=== PATIENT | female | born 1980 | race Caucasian/White ===

== ENCOUNTER → 2016-09-22 | Outpatient (CLI) | payer OTHER ==
--- NOTE | 2016-09-22 21:12 | REP ---
Clinical: Left hip pain. Technique: AP view of the pelvis with neutral and frog lateral views of the right and left hip. Findings: The osseous structures are intact. There is no evidence for acute fracture or dislocation. The bilateral hip joints are symmetric and normal. No overt arthritic degenerative changes are appreciated. No periarticular calcifications are identified. Impression: Symmetric normal appearance of the hips and pelvis. Signed by oYan Ardon MD 09/22/2016 09:03 P
== END ==
LOC: M SMT 12:57
PROVIDERS: ATTEND Family Medicine
DX: M25.552 Pain in left hip (principal)

== ENCOUNTER → 2016-10-29 | Outpatient (REF) | payer OTHER | LOC: M LAB REF 16:53 | PROVIDERS: ATTEND Family Medicine | DX: J02.9 Acute pharyngitis, unspecified (principal) ==

== ENCOUNTER → 2017-01-08 | Outpatient (CLI) | payer OTHER ==
[2017-01-08 18:44] LABS: ALBUMIN/GLOBULIN RATIO 1.11 (1.00-1.93); ALKALINE PHOSPHATASE 27 U/L (45-117); ALT/SGPT 19 U/L (12-78); ANION GAP 8 MEQ/L (8-16); AST/SGOT 17 U/L (15-37); BILIRUBIN,TOTAL 0.5 MG/DL (0.2-1.0); BLOOD UREA NITROGEN 13 MG/DL (7-18); CALCIUM LEVEL 8.7 MG/DL (8.5-10.1); CARBON DIOXIDE LEVEL 28 MEQ/L (21-32); CHLORIDE LEVEL 104 MEQ/L (98-107); CHOLESTEROL LEVEL 166 MG/DL (<200); CREATININE FOR GFR 1.02 MG/DL (0.55-1.02); GLOMERULAR FILTRATION RATE > 60.0 (>60); GLUCOSE, FASTING 84 MG/DL (70-105); POTASSIUM SERUM 4.6 MEQ/L (3.5-5.1); SODIUM LEVEL 140 MEQ/L (136-145); TOTAL PROTEIN 7.6 GM/DL (6.4-8.2); TRIGLYCERIDES LEVEL 85 MG/DL (<150)
== END ==
LOC: M SMT 10:09
PROVIDERS: ATTEND Physician Assistant
DX: Z13.220 Encounter for screening for lipoid disorders (principal); E55.9 Vitamin D deficiency, unspecified

== ENCOUNTER → 2018-07-27 | Outpatient (CLI) | payer BC ==
[2018-07-27 13:47] LABS: ALBUMIN 4.2 GM/DL (3.2-5.2); ALBUMIN/GLOBULIN RATIO 1.17 (1.00-1.93); ALKALINE PHOSPHATASE 29 U/L (45-117); ALT/SGPT 23 U/L (12-78); ANION GAP 6 MEQ/L (8-16); AST/SGOT 17 U/L (7-37); BILIRUBIN,TOTAL 0.6 MG/DL (0.2-1.0); BLOOD UREA NITROGEN 9 MG/DL (7-18); CALCIUM LEVEL 8.8 MG/DL (8.5-10.1); CARBON DIOXIDE LEVEL 28 MEQ/L (21-32); CHLORIDE LEVEL 104 MEQ/L (98-107); CHOLESTEROL LEVEL 172 MG/DL (<200); CHOLESTEROL RISK RATIO 4.095 (<5); CREATININE FOR GFR 1.01 MG/DL (0.55-1.30); FREE T4 0.92 NG/DL (0.76-1.46); GLOMERULAR FILTRATION RATE > 60.0 (>60); GLUCOSE, FASTING 94 MG/DL (70-100); HDL CHOLESTEROL 42 MG/DL (>40); LDL CHOLESTEROL 104 MG/DL (<100); NON-HDL-C 130 MG/DL; SODIUM LEVEL 138 MEQ/L (136-145); TOTAL PROTEIN 7.8 GM/DL (6.4-8.2); TRIGLYCERIDES LEVEL 132 MG/DL (<150)
[2018-07-27 13:48] LABS: TOTAL 25(OH) VITAMIN D 16.7 NG/ML (30.0-100.0)
== END ==
LOC: M SMT 08:44
DX: E55.9 Vitamin D deficiency, unspecified (principal); E66.8 Other obesity
CPT/HCPCS: 84443

== ENCOUNTER → 2018-11-06 | Outpatient (CLI) | payer BC ==
[2018-11-06 12:41] LABS: BASO # 0.1 10^3/uL (0.0-0.2); BASO % 0.9 % (0.0-1.0); EOS # 0.2 10^3/uL (0.0-0.50); EOS % 3.6 % (0.0-3.0); HEMATOCRIT 41.5 % (36.0-47.0); HEMOGLOBIN 13.1 g/dl (12.0-15.5); LYMPH # 1.6 10^3/uL (1.5-4.5); LYMPH % 27.9 % (24.0-44.0); MEAN CORPUSCULAR HGB CONC 31.6 g/dl (32.0-36.5); MEAN CORPUSCULAR VOLUME 85.6 fl (80.0-96.0); MONO # 0.5 10^3/uL (0.0-0.8); NEUTROPHILS # 3.4 10^3/uL (1.8-7.7); NEUTROPHILS % 59.4 % (36.0-66.0); PLATELET COUNT, AUTOMATED 223 10^3/uL (150-450); RED BLOOD COUNT 4.85 10^6/uL (4.00-5.40); WHITE BLOOD COUNT 5.8 10^3/uL (4.0-10.0)
[2018-11-06 13:12] LABS: ALT/SGPT 22 U/L (12-78); BILIRUBIN,TOTAL 0.5 MG/DL (0.2-1.0); BLOOD UREA NITROGEN 12 MG/DL (7-18); C REACTIVE PROTEIN QUANTITATIV < 0.30 MG/DL (0.00-0.30); CALCIUM LEVEL 8.3 MG/DL (8.5-10.1); CARBON DIOXIDE LEVEL 24 MEQ/L (21-32); CHLORIDE LEVEL 110 MEQ/L (98-107); CREATININE FOR GFR 1.07 MG/DL (0.55-1.30); GLOMERULAR FILTRATION RATE > 60.0 (>60); GLUCOSE, FASTING 87 MG/DL (70-100); POTASSIUM SERUM 4.3 MEQ/L (3.5-5.1); SODIUM LEVEL 142 MEQ/L (136-145); TOTAL PROTEIN 7.5 GM/DL (6.4-8.2)
[2018-11-06 13:23] LABS: ERYTHROCYTE SEDIMENTATION RATE 6 mm/hr (0-20)
[2018-11-09 16:21] LABS: Lyme Disease IgG/IgM Antibodie <0.91 ISR (0.00-0.90); Lyme Disease IgM Ab Quantitati <0.80 index (0.00-0.79)
== END ==
LOC: M LAB 12:11
PROVIDERS: ATTEND Physician Assistant
DX: R42 Dizziness and giddiness (principal)

== ENCOUNTER → 2018-12-22 | Outpatient (REF) | payer BC ==
[2018-12-25 16:33] LABS: HPV HYBRID CAPTURE II Negative (Negative)
== END ==
LOC: M LAB REF 17:30
PROVIDERS: ATTEND Advanced Practice Midwife
DX: Z12.4 Encounter for screening for malignant neoplasm of cervix (principal); N76.0 Acute vaginitis
CPT/HCPCS: 87624; G0123

== ENCOUNTER → 2019-01-21 | Outpatient (CLI) | payer BC ==
[2019-01-21 19:57] LABS: BASO # 0.1 10^3/uL (0.0-0.2); BASO % 0.9 % (0.0-1.0); EOS # 0.1 10^3/uL (0.0-0.50); EOS % 1.9 % (0.0-3.0); HEMATOCRIT 41.1 % (36.0-47.0); HEMOGLOBIN 13.3 g/dl (12.0-15.5); LYMPH # 2.1 10^3/uL (1.5-4.5); MEAN CORPUSCULAR HGB CONC 32.4 g/dl (32.0-36.5); MEAN CORPUSCULAR VOLUME 86.5 fl (80.0-96.0); MONO # 0.5 10^3/uL (0.0-0.8); MONO % 7.5 % (0.0-5.0); NEUTROPHILS # 4.1 10^3/uL (1.8-7.7); NEUTROPHILS % 59.6 % (36.0-66.0); PLATELET COUNT, AUTOMATED 236 10^3/uL (150-450); RED BLOOD COUNT 4.75 10^6/uL (4.00-5.40); WHITE BLOOD COUNT 6.8 10^3/uL (4.0-10.0)
[2019-01-21 20:08] LABS: ALBUMIN 4.1 GM/DL (3.2-5.2); ALT/SGPT 22 U/L (12-78); BILIRUBIN,TOTAL 0.4 MG/DL (0.2-1.0); BLOOD UREA NITROGEN 14 MG/DL (7-18); CALCIUM LEVEL 8.5 MG/DL (8.5-10.1); CARBON DIOXIDE LEVEL 25 MEQ/L (21-32); CHLORIDE LEVEL 106 MEQ/L (98-107); CREATININE FOR GFR 1.07 MG/DL (0.55-1.30); FOLATE 9.1 NG/ML (>5.4); GLOMERULAR FILTRATION RATE > 60.0 (>60); GLUCOSE, FASTING 87 MG/DL (70-100); RHEUMATOID FACTOR QUANT < 10.0 IU/ML (<15.0); SODIUM LEVEL 137 MEQ/L (136-145); TOTAL PROTEIN 8.1 GM/DL (6.4-8.2); VITAMIN B12 LEVEL 571 PG/ML (247-911)
[2019-01-21 20:16] LABS: ERYTHROCYTE SEDIMENTATION RATE 5 mm/hr (0-20)
[2019-01-25 13:20] LABS: ALBUMIN 4.68 GM/DL (3.29-5.55); ALBUMIN % 57.8 % (55.8-66.1); ALPHA-1-GLOBULIN % 3.4 % (2.9-4.9); ALPHA-1-GLOBULINS 0.28 GM/DL (0.17-0.41); ALPHA-2-GLOBULINS 0.66 GM/DL (0.42-0.99); ALPHA-2-GLOBULINS % 8.1 % (7.1-11.8)
[2019-01-25 13:21] LABS: BETA-1-GLOBULINS 0.55 GM/DL (0.28-0.60); BETA-1-GLOBULINS % 6.8 % (4.7-7.2); BETA-2-GLOBULINS 0.51 GM/DL (0.19-0.55); BETA-2-GLOBULINS % 6.3 % (3.2-6.5); GAMMA GLOBULIN % 17.6 % (11.1-18.8); GAMMA GLOBULINS 1.43 GM/DL (0.65-1.58)
[2019-01-27 08:06] LABS: ANTINUCLEAR ANTIBODIES DIRECT Negative (Negative); VITAMIN B1 LEVEL WHOLE BLOOD 103.2 nmol/L (66.5-200.0); VITAMIN E(ALPHA TOCOPHEROL) 7.4 mg/L (5.9-19.4); VITAMIN E(GAMMA TOCOPHEROL) 2.2 mg/L (0.7-4.9)
== END ==
LOC: M WUC 17:03
PROVIDERS: ATTEND Psychiatry & Neurology Neurology
DX: R42 Dizziness and giddiness (principal)

== ENCOUNTER → 2019-01-25 | Outpatient (REF) | payer BC | LOC: M LAB REF 19:24 | PROVIDERS: ATTEND Psychiatry & Neurology Neurology | DX: Z53.9 Procedure and treatment not carried out, unspecified reason (principal) ==

== ENCOUNTER → 2019-01-27 | Outpatient (REF) | payer BC | LOC: M WUC 17:00 | PROVIDERS: ATTEND Psychiatry & Neurology Neurology | DX: R42 Dizziness and giddiness (principal) ==

== ENCOUNTER → 2019-05-10 | Outpatient (REF) | payer BC | LOC: M LAB REF 18:23 | PROVIDERS: ATTEND Physician Assistant | DX: N39.3 Stress incontinence (female) (male) (principal) ==

== ENCOUNTER → 2019-06-27 | Outpatient (REF) | payer BC ==
[2019-06-27 19:22] LABS: BASO # 0.1 10^3/uL (0.0-0.2); BASO % 0.8 % (0.0-1.0); EOS # 0.1 10^3/uL (0.0-0.5); EOS % 1.9 % (0.0-3.0); HEMATOCRIT 42.1 % (36.0-47.0); HEMOGLOBIN 13.1 g/dl (12.0-15.5); LYMPH # 1.6 10^3/uL (1.5-5.0); MEAN CORPUSCULAR HEMOGLOBIN 27.9 pg (27.0-33.0); MEAN CORPUSCULAR HGB CONC 31.1 g/dl (32.0-36.5); MEAN CORPUSCULAR VOLUME 89.6 fl (80.0-96.0); MONO # 0.5 10^3/uL (0.0-0.8); MONO % 7.9 % (0.0-5.0); NEUTROPHILS # 4.1 10^3/uL (1.5-8.5); NEUTROPHILS % 64.1 % (36.0-66.0); PLATELET COUNT, AUTOMATED 241 10^3/uL (150-450); WHITE BLOOD COUNT 6.5 10^3/uL (4.0-10.0)
[2019-06-27 19:33] LABS: ALBUMIN 4.1 GM/DL (3.2-5.2); ALT/SGPT 20 U/L (12-78); BILIRUBIN,TOTAL 0.4 MG/DL (0.2-1.0); BLOOD UREA NITROGEN 17 MG/DL (7-18); CALCIUM LEVEL 8.8 MG/DL (8.5-10.1); CARBON DIOXIDE LEVEL 25 MEQ/L (21-32); CHLORIDE LEVEL 105 MEQ/L (98-107); CREATININE FOR GFR 1.05 MG/DL (0.55-1.30); GLOMERULAR FILTRATION RATE > 60.0 (>60); GLUCOSE, FASTING 82 MG/DL (70-100); POTASSIUM SERUM 4.1 MEQ/L (3.5-5.1); SODIUM LEVEL 140 MEQ/L (136-145); TOTAL PROTEIN 7.4 GM/DL (6.4-8.2)
== END ==
LOC: M LABNEURO 13:27
PROVIDERS: ATTEND Psychiatry & Neurology Neurology
DX: R51 Headache (principal)

== ENCOUNTER → 2020-02-08 | Outpatient (CLI) | payer OTHER ==
[2020-02-08 10:03] LABS: BASO % 0.6 % (0.0-1.0); EOS # 0.1 10^3/uL (0.0-0.5); EOS % 1.1 % (0.0-3.0); HEMATOCRIT 40.6 % (36.0-47.0); HEMOGLOBIN 13.1 g/dl (12.0-15.5); LYMPH # 1.5 10^3/uL (1.5-5.0); LYMPH % 19.9 % (24.0-44.0); MEAN CORPUSCULAR HEMOGLOBIN 28.7 pg (27.0-33.0); MEAN CORPUSCULAR HGB CONC 32.3 g/dl (32.0-36.5); MONO # 0.4 10^3/uL (0.0-0.8); MONO % 6.1 % (0.0-5.0); NEUTROPHILS # 5.2 10^3/uL (1.5-8.5); NEUTROPHILS % 71.9 % (36.0-66.0); PLATELET COUNT, AUTOMATED 261 10^3/uL (150-450); RED BLOOD COUNT 4.56 10^6/uL (4.00-5.40); WHITE BLOOD COUNT 7.3 10^3/uL (4.0-10.0)
[2020-02-08 10:37] LABS: ALBUMIN 3.7 GM/DL (3.2-5.2); ALT/SGPT 120 U/L (12-78); BILIRUBIN,TOTAL 0.6 MG/DL (0.2-1.0); BLOOD UREA NITROGEN 12 MG/DL (7-18); CALCIUM LEVEL 8.8 MG/DL (8.5-10.1); CARBON DIOXIDE LEVEL 25 MEQ/L (21-32); CHLORIDE LEVEL 107 MEQ/L (98-107); CREATININE FOR GFR 0.99 MG/DL (0.55-1.30); FREE T4 0.91 NG/DL (0.76-1.46); GLOMERULAR FILTRATION RATE > 60.0 (>60); GLUCOSE, FASTING 84 MG/DL (70-100); POTASSIUM SERUM 4.3 MEQ/L (3.5-5.1); SODIUM LEVEL 140 MEQ/L (136-145); TOTAL PROTEIN 7.1 GM/DL (6.4-8.2)
[2020-02-08 13:24] LABS: HEPATITIS A ANTIBODY IGM NEGATIVE (NEGATIVE); HEPATITIS B CORE ANTIBODY IGM NEGATIVE (NEGATIVE); HEPATITIS B SURFACE ANTIGEN NEGATIVE (NEGATIVE); HEPATITIS C VIRUS ABY INDEX 0.2 INDEX (<0.8)
[2020-02-08 13:25] LABS: HEPATITIS B SURFACE ANTIBODY POSITIVE (POSITIVE)
== END ==
LOC: M LAB 09:04
PROVIDERS: ATTEND Family Medicine
DX: Z13.29 Encounter for screening for other suspected endocrine disorder (principal); R74.8 Abnormal levels of other serum enzymes; Z13.0 Encounter for screening for diseases of the blood and blood-forming organs and certain disorders involving the immune mechanism

== ENCOUNTER → 2020-03-01 | Outpatient (CLI) | payer OTHER ==
[2020-03-01 08:06] LABS: ALBUMIN 3.6 GM/DL (3.2-5.2); BILIRUBIN,TOTAL 0.4 MG/DL (0.2-1.0); CALCIUM LEVEL 8.7 MG/DL (8.5-10.1); CREATININE FOR GFR 1.11 MG/DL (0.55-1.30); GLOMERULAR FILTRATION RATE 58.6 (>60); POTASSIUM SERUM 3.9 MEQ/L (3.5-5.1); TOTAL PROTEIN 7.1 GM/DL (6.4-8.2)
== END ==
LOC: M LAB 07:10
PROVIDERS: ATTEND Family Medicine
DX: R74.8 Abnormal levels of other serum enzymes (principal)

== ENCOUNTER → 2020-03-07 | Outpatient (REF) | payer OTHER | LOC: M LAB REF 16:54 | PROVIDERS: ATTEND Physician Assistant | DX: N76.0 Acute vaginitis (principal) ==

== ENCOUNTER → 2020-04-19 | Outpatient (REF) | payer OTHER ==
[~2020-04-19] MED LIST: ASHL1TAB PO; CETI10CH PO; SERT-141 PO; ZONI25CA13 PO
[2020-05-27 11:30] LABS: CHLAMYDIA DNA AMPLIFICATION POSITIVE (NEGATIVE); GC DNA AMPLIFICATION NEGATIVE (NEGATIVE)
== END ==
LOC: M SFHCWAGY 12:56
PROVIDERS: ATTEND Advanced Practice Midwife
DX: Z12.4 Encounter for screening for malignant neoplasm of cervix (principal)
CPT/HCPCS: 87491; 87591; 87624; G0123

== ENCOUNTER → 2020-07-07 | Outpatient (CLI) | payer OTHER | LOC: M LABSMTC 10:56 | PROVIDERS: ATTEND Anesthesiology | DX: Z01.818 Encounter for other preprocedural examination (principal); Z20.828 Contact with and (suspected) exposure to other viral communicable diseases | CPT/HCPCS: C9803; U0003 ==

== ENCOUNTER → 2020-07-12 | Day surgery (SDC) | payer OTHER ==
[~2020-07-12] VITALS: Ht 170.2 cm; Wt 84.7 kg
[~2020-07-12] MED LIST changes: +KETOROLAC 60MG 2ML VIAL As Ordered ONE; +LIDOCAINE 2% 100MG/5ML SDV (FOR ANES.) As Ordered ONE; +LR 1,000 ML IV ONE; +LR 1,000 ML IV SCH; +METOCLOPRAMIDE INJ 10MG/2ML VIAL (J2765 PER 1) IV PRN; +MIDAZOLAM INJ 2MG/2ML VIAL (J2250 PER 1MG) As Ordered ONE; +ONDANSETRON 4MG/2ML VIAL As Ordered ONE; +ONDANSETRON 4MG/2ML VIAL IV PRN; +PERCOCET 5MG/325MG TAB PO PRN; +ROCURONIUM BROMIDE 50 MG/5 ML VIAL As Ordered ONE; +SUGAMMADEX SODIUM 500 MG/5 ML VIAL (BRIDION) As Ordered ONE; +dexameTHASONE 4 MG/ML 1ML VIAL (J1100 PER 1MG) As Ordered ONE; +dexameTHASONE 4 MG/ML 1ML VIAL (J1100 PER 1MG) IV ONE; +fentaNYL 100 MCG/2 ML INJECTION (J3010) As Ordered ONE; +propofoL 200 MG/20 ML VIAL As Ordered ONE
[2020-07-12] MEDS: fentaNYL 100 MCG/2 ML INJECTION (J3010) IV PRN ×4 (16:44→17:00)
[2020-07-12 17:48] VITALS: BP 132/80
== END | disposition home or self-care (01) ==
LOC: M SDC 11:30
PROVIDERS: ATTEND Otolaryngology
DX: J35.1 Hypertrophy of tonsils (principal); K58.8 Other irritable bowel syndrome; F41.9 Anxiety disorder, unspecified; R42 Dizziness and giddiness; Z88.1 Allergy status to other antibiotic agents; Z88.0 Allergy status to penicillin; Z79.899 Other long term (current) drug therapy
CPT/HCPCS: 42140; 42826; 81025; 88302; 88305; J1100; J1885; J2250; J2405; J3010

== ENCOUNTER → 2020-07-25 | Outpatient (REF) | payer OTHER ==
[~2020-07-25] MED LIST changes: -KETOROLAC 60MG 2ML VIAL As Ordered ONE; -LIDOCAINE 2% 100MG/5ML SDV (FOR ANES.) As Ordered ONE; -LR 1,000 ML IV ONE; -LR 1,000 ML IV SCH; -METOCLOPRAMIDE INJ 10MG/2ML VIAL (J2765 PER 1) IV PRN; -MIDAZOLAM INJ 2MG/2ML VIAL (J2250 PER 1MG) As Ordered ONE; -ONDANSETRON 4MG/2ML VIAL As Ordered ONE; -ONDANSETRON 4MG/2ML VIAL IV PRN; -PERCOCET 5MG/325MG TAB PO PRN; -ROCURONIUM BROMIDE 50 MG/5 ML VIAL As Ordered ONE; -SUGAMMADEX SODIUM 500 MG/5 ML VIAL (BRIDION) As Ordered ONE; -dexameTHASONE 4 MG/ML 1ML VIAL (J1100 PER 1MG) As Ordered ONE; -dexameTHASONE 4 MG/ML 1ML VIAL (J1100 PER 1MG) IV ONE; -fentaNYL 100 MCG/2 ML INJECTION (J3010) As Ordered ONE; -propofoL 200 MG/20 ML VIAL As Ordered ONE
[2020-07-25 20:35] LABS: CHLAMYDIA DNA AMPLIFICATION NEGATIVE (NEGATIVE); GC DNA AMPLIFICATION NEGATIVE (NEGATIVE)
== END ==
LOC: M LAB REF 16:52
PROVIDERS: ATTEND Family Medicine
DX: A56.02 Chlamydial vulvovaginitis (principal)

== ENCOUNTER 2020-09-25 11:49 | Emergency (ER) | payer OTHER ==
[~2020-09-25] VITALS: Ht 170.2 cm; Wt 90.1 kg
--- OUTSIDE RECORDS SUMMARY | 2020-09-25 12:02 | CCD | Continuity of Care Document ---
Author Author Bessy GALLARDO M.D. Organization Unknown Address [address] [place] [address] Phone [phone] Care Team Providers Care It Security Manager Name Role Phone Rody Carreon DO AUTM Problems Active Problems Provider Date Dizziness and giddiness Fanta Gallardo M.D. Onset: 9 Social History Type Date Description Comments Sex Unknown Tobacco Use Start: Unknown Patient has never smoked Allergies, Adverse Reactions, Alerts Active Allergies Reaction Severity Comments Date Augmentin 01/14/2019 Medications Active Medications SIG Qnty Indications Ordering Provide r Date Zonisamide 50mg Capsules 3 tabs by mouth nightly 90caps America Whitaker M.D. 10/24/2019 Immunizations Description No Information Available Vital Signs Date Vital Result Comment 01/14/2019 8:33am Respiratory Rate 13 /min Height 67 inches 5'7" Weight 205.00 lb BMI (Body Mass Index) 32.1 kg/m2 [place] Body Weight 135 lb Results Description No Information Available Procedures Description No Information Available Medical Devices Description No Information Available Encounters Type Date Location Provider Dx Diagnosis Office Visit 09/18/2020 7:15a Main office - [place] Fanta Gallardo M.D. R42 Dizziness and giddiness G43.809 Other migraine, not intracta ble, without status migrainosus R20.2 Paresthesia of skin Assessments Date Code Description Provider 09/18/2020 R42 Dizziness and giddiness Fanta cano M.D. 09/18/2020 G43.809 Other migraine, not intractable, without status migrainosus Fanta Gallardo M.D. 09/18/2020 R20.2 Paresthesia of skin Fanta Gallardo M.D. Plan of Treatment Future Appointment(s):* 10/30/2020 3:00 pm - Fanta Gallardo M.D. at [facility] * 09/26/2020 8:00 am - Jennifer Gallardo M.D. at [facility] Functional Status Description No Information Available Mental Status Description No Information Available Referrals Description No Information Available
--- OUTSIDE RECORDS SUMMARY | 2020-09-25 12:02 | CCD | Continuity of Care Document ---
Author Author Bessy GALLARDO M.D. Organization Unknown Address [address] [place] [id number] Phone [phone] Care Team Providers Care Director Trial Name Role Phone Rody Carreon DO AUTM [...] lb BMI (Body Mass Index) 32.1 kg/m2 [place] Body Weight 135 lb Results Description No Information Available Procedures Description No Information Available Medical Devices Description No Information Available Encounters Description No Information Available Assessments Description No Information Available Plan of Treatment No Information Available Functional Status Description No Information Available Mental Status Description No Information Available Referrals Description No Information Available
--- OUTSIDE RECORDS SUMMARY | 2020-09-25 12:02 | CCD | Continuity of Care Document ---
Author Author Bessy NASH [place] Organization Unknown Address [address] [place] [address] [address] [place] [address] Phone [phone] Care Team Providers Care Convention Services Director Name Role Phone Rody Carreon D.O. AUTM Jonna AUTM [phone] Problems Active Problems Provider Date Contraception care management Rody Carreon D.O. Ons et: 04/16/2015 Allergic rhinitis Rody Carreon D.O. Onset: 2014 Generalized anxiety disorder Rody Carreon D.O. Onse t: 05/21/2015 Transient insomnia Rody Carreon D.O. Onset: 2014 Low back pain Rody Carreon D.O. Onset: 2015 Somatic dysfunction of head region Charlotte Cary Onset: 09/12/2015 Cervical somatic dysfunction Rody Carreon D.O. Onse t: 09/12/2015 Somatic dysfunction of thoracic region Rody Carreon D.O. Onset: 09/12/2015 Somatic dysfunction of pelvic region Akash Cary Onset: 09/12/2015 Somatic dysfunction of sacroiliac joint Rody Carreon D.O. Onset: 09/12/2015 Somatic dysfunction of lumbar region Akash Cary Onset: 09/12/2015 Somatic dysfunction of lower limb Rody Carreon D.O. Onset: 09/12/2015 Sacrococcygeal disorders, not elsewhere classified Rody Gan D.O. Onset: 09/12/2015 Irritable bowel syndrome Rody Carreon D.O. Onset: 0 09/12/2015 Adult health examination Rody Carreon D.O. Onset: 0 12/31/2015 Carpal tunnel syndrome DEBORA Lino Onset: 6 Arthralgia of the pelvic region and thigh Rody khan D.O. Onset: 03/18/2016 Vitamin D deficiency DEBORA Lino Onset: 07/02/2016 Social History Type Date Description Comments Sex Unknown Tobacco Use Start: Unknown Never Smoked Cigarettes Smoking Status Reviewed: 07/25/20 Never Smoked Cigarettes ETOH Use Occasionally consumes alcohol 1- 2/month Tobacco Use Start: Unknown Patient has never smoked Recreational Drug Use Denies Drug Use Exercise Type/Frequency Walks 5 times a week Sun Exposure Uses sunscreen Seat Belt/Car Seat Always uses seat belt Allergies, Adverse Reactions, Alerts Active Allergies Reaction Severity Comments Date Augmentin bulge in intestines 04/16/20 15 Medications Active Medications SIG Qnty Indications Ordering Provide r Date Camrese 0.15-0.03&0.01mg Tablets 1 by mouth every day 3months Rody Carreon D.O. 06/11 Sertraline HCL 50mg Tablets 1 by mouth every day 30tabs F41.1 Rody Carreon D.O. 03/07 Zyrtec Allergy 10mg Tablets take one tablet by mouth at bedtime 90tabs J30.9 Rody Carreon D.O. 11/19/2018 Alprazolam 0.25mg Tablets take 1 tablet by mouth twice daily as needed for anxiety istop [id number] 20tabs F41. 1 Rody Carreon D.O. 05/18/2017 Flonase Allergy Relief 50mcg/Act Suspension 2 sprays in each nostril daily 3units Rody Rodríguez D.O. 04/16/2015 Zonisamide 50mg Capsules 1 by mouth twice a day Unknown History Medications Seasonique 0.15-0.03&0.01mg Tablet s take 1 tablet by mouth daily for 90 days for control 3months Z79.3 Maxime GarciaO. 06/11/2020 - 06/11/2020 Keflex 500mg Capsules 1 tab by mouth three times a day until gone 21caps Maxime CaryO . 03/13/2020 - 05/08/2020 Fluconazole 150mg Tablets 1 tab by mouth as needed 3tabs N76.0 Maxime CaryO. 03/07 - 05/30/2020 Medications Administered in Office Medication SIG Qnty Indications Ordering Provider Date Immunization Administration Single Or Co mbination Injection DEBORA Castellon 1 Immunization Administration Single Or Co mbination Injection DEBORA Lino Immunizations CPT Code Status Date Vaccine Lot # [id number] Given 07/02/2017 Influenza Vaccin e Quadrivalent Preser/Antibiotic Free Im Use [id number] Given 07/02/2016 Influenza Virus Vaccine, Quadrivalent, Split, Preservative Free [id number] Vital Signs Date Vital Result Comment 08/09/2020 2:16pm BP Systolic 126 mmHg BP Diastolic 84 mmHg Height 66.4 inches 5'6.40" Weight 190.00 lb BMI (Body Mass Index) 30.3 kg/m2 Heart Rate 65 /min Respiratory Rate 18 /min Body Temperature 98.9 F O2 % BldC Oximetry 98 % [place] Body Weight 130 lb 07/25/2020 10:46am BP Systolic 114 mmHg BP Diastolic 72 mmHg Height 66.4 inches 5'6.40" Weight 185.19 lb BMI (Body Mass Index) 29.5 kg/m2 Heart Rate 94 /min Respiratory Rate 16 /min Body Temperature 98.2 F O2 % BldC Oximetry 98 % [place] Body Weight 130 lb Results Test Acquired Date Facility Test Result H/L Range Note GC & Chlamydia By Amp 07/25/[address] [id number] [phone] Chlamydia Dna Amplification NEGATIVE Normal Nega tive 1 GC Dna Amplification NEGATIVE Normal Negative 2 Laboratory test finding 03/07/2020 [facility] Outpatient T anthonying (Registration) [address] [place], [place] [id number] [phone] Genital Culture FULL REPORT IN L <SEE NOTE> Normal 3 Comprehensive Metabolic Profil 03/01/[address] [id number] [phone] Glucose, Fasting 95 mg/dL Normal 70-100 Blood Urea Nitrogen 12 mg/dL Normal 7-18 Creatinine For GFR 1.11 mg/dL Normal 0.55-1.30 Glomerular Filtration Rate 58.6 Low >60 4 Sodium Level 142 mEq/L Normal 136-145 Potassium Serum 3.9 mEq/L Normal 3.5-5.1 Chloride Level 111 mEq/L High 98-107 Carbon Dioxide Level 24 mEq/L Normal 21-32 Anion Gap 7 mEq/L Low 8-16 Calcium Level 8.7 mg/dL Normal 8.5-10.1 Ast/Sgot 29 U/L Normal 7-37 Alt/SGPT 43 U/L Normal 12-78 Alkaline Phosphatase 32 U/L Low 45-117 Bilirubin,Total 0.4 mg/dL Normal 0.2-1.0 Total Protein 7.1 GM/DL Normal 6.4-8.2 Albumin 3.6 GM/DL Normal 3.2-5.2 Albumin/Globulin Ratio 1.0 Low 1.2-2.2 1 A negative test result does not exclude the possibility of infection because test results may be affected by improper specimen collection, technical error, specimen mix-up, concurrent antibiotic therapy, or the number of organisms in the specimen which may be below the sensitivity of the test. 2 A negative test result does not exclude the possibility of infection because test results may be affected by improper specimen collection, technical error, specimen mix-up, concurrent antibiotic therapy, or the number of organisms in the specimen which may be below the sensitivity of the test. 3 FULL REPORT IN LAB NOTES (eC W and Medent). NORMAL ARIELA PRESENT ORGANISM 1: STREP AGALACTIAE GROUP B QUANTITY OF GROWTH FEW ORGANISM 2: YEAST LIKE ORGANISM QUANTITY OF GROWTH HEAVY ORGANISM 1: STREP AGALACTIAE GROUP B ORGANISM 2: YEAST LIKE ORGANISM STREP AGALACTIAE GROUP B: REACTION ICR (INDUCIBLE CC RESISTANCE) IV ICR TEST RESULT TETRACYCLINE PO 250 mg qid >=16 R PENICILLIN G IV 1 mu q6H 0.12 S PENICILLIN G IV 1 mu q6h 0.12 S PENICILLIN G PO 250mg q6h fasting 0.12 S AMPICILLIN IV 500mg q6h <=0.25 S AMPICILLIN PO 500mg q6h fasting <=0.25 S ERYTHROMYCIN IV 500mg q6h <=0.12 S ERYTHROMYCIN PO 500mg q6h <=0.12 S LEVOFLOXACIN IV 500mg qd 1 S LEVOFLOXACIN PO 250mg qd 1 S LEVOFLOXACIN PO 500mg qd 1 S VANCOMYCIN IV 500mg q8h 0.5 S MOXIFLOXACIN (AVELOX) IV 400MG QD 0.12 S MOXIFLOXACIN (AVELOX) PO 400MG QD 0.12 S CEFTRIAXONE IV 1gm q24h <=0.12 S CEFOTAXIME IV 1gm q8h <=0.12 S An isolate with a (+) POSITIVE ICR test is considered CLINDAMYCIN RESISTANT; however, clindamycin may still be effective in some patients. An isolate with a (-) NEGATIVE ICR test is considered CLIDAMYCIN SENSITIVE. 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 R06.83 Snoring Z79.3 ocean transportation intermediary (current) use of h ormonal contraceptives F41.1 Generalized anxiety disorder R53.83 Other fatigue A56.02 Chlamydial vulvovaginitis Office Visit 06/11/2020 8:00a [facility] Rody Carreon D.O. Z79.3 MCC (current) use of h ormonal contraceptives Office Visit 05/08/2020 10:40a [facility] Rody Carreon D.O. G47.10 Hypersomnia, unspecified R06.83 Snoring J35.8 Other chronic diseases of to nsils and adenoids Office Visit 03/07/2020 3:20p [facility] DEBORA Lino N76.0 Acute vaginitis F41.1 Generalized anxiety disorder Assessments Date Code Description Provider 08/09/2020 F41.1 Generalized anxiety disorder DEBORA Byrne 08/09/2020 R53.83 Other fatigue DEBORA Lino 08/09/2020 E55.9 Vitamin D deficiency, unspecifie d DEBORA Lino 07/25/2020 R06.83 Snoring Rody Ansari-Chelo rbbill, D.O. 07/25/2020 Z79.3 MCC (current) use of hormo nal contraceptives Rody Ansari-Kurt, D.O. 07/25/2020 F41.1 Generalized anxiety disorder Denice Carreon, D.O. 07/25/2020 R53.83 Other fatigue Rody Ansari-Whitney rbbill, D.O. 07/25/2020 A56.02 Chlamydial vulvovaginitis Rody Maldonado, D.O. 06/11/2020 Z79.3 MCC (current) use of hormo nal contraceptives Rody Carreon, D.O. 05/08/2020 G47.10 Hypersomnia, unspecified Rody Cristina, D.O. 05/08/2020 R06.83 Snoring Rody Ansari-Whitney rber, D.O. 05/08/2020 J35.8 Other chronic diseases of tonsil s and adenoids Rody Hicks D.O. 03/07/2020 N76.0 Acute vaginitis DEBORA Lino 03/07/2020 F41.1 Generalized anxiety disorder DEBORA Byrne Plan of Treatment Future Appointment(s):* 11/07/2020 1:00 pm - Rody Carreon D.O. at [facility] 08/09/2020 - DEBORA Lino* F41.1 Generalized anxiety disorder* Comments: * Reasonably stable given life events. We will continue your medications as prescribed, and continue with EAP as we discussed. * Follow up:* [address] Ansari. * R53.83 Other fatigue* Comments:* Appears stable currently. * E55.9 Vitamin D deficiency, unspecified Functional Status Description No Information Available Mental Status Description No Information Available Referrals Refer to Reason for Referral Status Appt Date [facility] This is a 39 year old female with hypersomnia and snoring. Please do nocturnal oximetry. Sent [address] [place] [address] [phone] Simón Verdin M.D. This is a 39 year old female with snoring and grade 4 tonsils. I am curious if you think she would benefit from tonsillectomy at this point as she is having hypersomnolence. I am obtaining nocturnal oximetry and then sleep study as well. Please evalaute and treat. Patient Notified 06/13/2020 [facility] [address] [facility], [facility] [address] [place], [place] [address] [phone]
--- OUTSIDE RECORDS SUMMARY | 2020-09-25 12:02 | CCD | Continuity of Care Document ---
Author Author Bessy NASH [place] Organization Unknown Address [address] [place] [address] 6 [address] [place] [address] Phone [phone] Care Team Providers Care Health And Safety Specialist Name Role Phone Rdoy Carreon D.O. AUTM [phone] Jonna AUTM [phone] Problems Active Problems Provider Date Contraception care management Rody Carreon D.O. Ons et: 04/16/2015 Allergic rhinitis Rody Carreon D.O. Onset: 2014 Generalized anxiety disorder Rody Carreon D.O. Onse t: 05/21/2015 Transient insomnia Royd Carreon D.O. Onset: 2014 Low back pain [...] twice daily as needed for anxiety istop [id number] 20tabs F41. 1 Rody Carreon D.O. 05/18/2017 [...] CPT Code Status Date Vaccine Lot # [id number] Given 07/02/2017 Influenza Vaccin e Quadrivalent Preser/Antibiotic Free Im Use [id number] Given 07/02/2016 Influenza Virus Vaccine, Quadrivalent, Split, Preservative Free [id number] Vital Signs Date Vital Result Comment 08/09/2020 2:16pm BP Systolic 126 mmHg BP Diastolic 84 mmHg Height 66.4 inches 5'6.40" Weight 190.00 lb BMI (Body Mass Index) 30.3 kg/m2 Heart Rate 65 /min Respiratory Rate 18 /min Body Temperature 98.9 F O2 % BldC Oximetry 98 % [place] Body Weight 130 lb 07/25/2020 10:46am BP Systolic 114 mmHg BP Diastolic 72 mmHg Height 66.4 inches 5'6.40" Weight 185.19 lb BMI (Body Mass Index) 29.5 kg/m2 Heart Rate 94 /min Respiratory Rate 16 /min Body Temperature 98.2 F O2 % BldC Oximetry 98 % [place] Body Weight 130 lb Results Test Acquired Date Facility Test Result H/L Range Note GC & Chlamydia By Amp 07/25/[address] [id number] [phone] Chlamydia Dna Amplification NEGATIVE Normal Nega tive 1 GC Dna Amplification NEGATIVE Normal Negative 2 Laboratory test finding 03/07/2020 [facility] Outpatient T anthonying (Registration) [address] [place], [place] [address] [phone] Genital Culture FULL REPORT IN L <SEE NOTE> Normal 3 Comprehensive Metabolic Profil 03/01/[address] [id number] [phone] Glucose, Fasting 95 mg/dL Normal 70-100 Blood [...] Little GFR Left ESRD GFR <15 on CABINET MOUNTER Procedures Description No Information Available Medical Devices Description No Information Available Encounters Type Date Location Provider Dx Diagnosis Office Visit 07/25/2020 11:00a [facility] Rody Carreon D.O. R06.83 Snoring Z79.3 longterm (current) use of h ormonal contraceptives F41.1 Generalized anxiety disorder R53.83 Other fatigue A56.02 Chlamydial vulvovaginitis Office Visit 06/11/2020 8:00a [facility] Rody Carreon D.O. Z79.3 longterm (current) use of h ormonal contraceptives Office Visit 05/08/2020 10:40a [facility] Rody Carreon D.O. G47.10 Hypersomnia, unspecified R06.83 Snoring J35.8 Other chronic diseases of to nsils and adenoids Office Visit 03/07/2020 3:20p [facility] DEBORA Lino N76.0 Acute vaginitis F41.1 Generalized anxiety disorder Assessments Date Code Description Provider 08/09/2020 F41.1 Generalized anxiety disorder DEBORA Byrne 08/09/2020 R53.83 Other fatigue DEBORA Lino 08/09/2020 E55.9 Vitamin D deficiency, unspecifie d DEBORA Lino 07/25/2020 R06.83 Snoring Rody Ansari-Whitney rbbill, D.O. 07/25/2020 Z79.3 reconciling clerk (current) use of hormo nal contraceptives Rody Ansari-Kurt, D.O. 07/25/2020 F41.1 Generalized anxiety disorder Denice mathias Velma, D.O. 07/25/2020 R53.83 Other fatigue Rody Kamaraeano-Whitney rbbill, D.O. 07/25/2020 A56.02 Chlamydial vulvovaginitis Rody L Erica, D.O. 06/11/2020 Z79.3 reconciling clerk (current) use of hormo nal contraceptives Rody Ansari-Kurt, D.O. 05/08/2020 G47.10 Hypersomnia, unspecified Rody Cristina, D.O. 05/08/2020 R06.83 Snoring Rody Ansari-Whitney rbbill, D.O. 05/08/2020 J35.8 Other chronic diseases of tonsil s and adenoids Rody Hicks, D.O. 03/07/2020 N76.0 Acute vaginitis DEBORA Lino 03/07/2020 F41.1 Generalized anxiety disorder DEBORA Byrne Plan of Treatment Future Appointment(s):* 11/07/2020 1:00 pm - Rody Carreon D.[facility]adeem at [facility] 08/09/2020 - DEBORA Lino* F41.1 Generalized [...] to Reason for Referral Status Appt Date [facility] This is a 39 year old female with hypersomnia and snoring. Please do nocturnal oximetry. Sent [address] [place] [address] [phone] Simón Verdin M.D. This is a 39 year old female with snoring and grade 4 tonsils. I am curious if you think she would benefit from tonsillectomy at this point as she is having hypersomnolence. I am obtaining nocturnal oximetry and then sleep study as well. Please evalaute and treat. Patient Notified 06/13/2020 [facility] [address] [facility], [facility] [address] [place], [place] [address] [phone]
--- OUTSIDE RECORDS SUMMARY | 2020-09-25 12:03 | CCD | Continuity of Care Document ---
Author Author Bessy CARREON Organization Unknown Address [address] [place] [address] Phone [phone] Care Team Providers Care Medical Records Secretary Name Role Phone Rody Carreon D.O. AUT[facility] [phone] Problems Active Problems Provider Date Contraception care [...] 09/12/2015 Somatic dysfunction of thoracic region Rody Carroen D.O. Onset: 09/12/2015 Somatic dysfunction of pelvic [...] 1 by mouth every day 30tabs F41.1 Maxime CaryOKadeem 03/07 Zyrtec Allergy 10mg Tablets take one tablet by mouth at bedtime 90tabs J30.9 Maxime CaryOKadeem 11/19/2018 Alprazolam 0.25mg Tablets take 1 tablet by mouth twice daily as needed for anxiety istop [id number] 20tabs F41. 1 Rody Carreon D.O. 05/18/2017 Flonase Allergy Relief 50mcg/Act Suspension 2 sprays in each nostril daily 3units Rody Rodríguez D.O. 04/16/2015 Zonisamide 50mg Capsules 1 by mouth twice a day Unknown History Medications Seasonique 0.15-0.03&0.01mg Tablet s take 1 tablet by mouth daily for 90 days for control 3months Z79.3 Rody Hicks D.O. 06/11/2020 - 06/11/2020 Keflex 500mg Capsules 1 tab by mouth three times a day until gone 21caps Maxime CaryO . 03/13/2020 - 05/08/2020 Fluconazole 150mg Tablets 1 tab by mouth as needed 3tabs N76.0 Rody Carreon D.O. 03/07 - 05/30/2020 Norgestim-Eth Estrad Triphasic 0.18/0.215/0.25 mg-25 mcg Tablets 1 by mouth every day 84tabs Z30.011 Casey Hicks D.O. 01/25/2020 - 06/11/2020 Medications Administered in Office Medication SIG Qnty Indications Ordering Provider Date Immunization Administration Single Or Co mbination Injection DEBORA Castellon 1 Immunization Administration Single Or Co mbination Injection DEBORA Lino Immunizations CPT Code Status Date Vaccine Lot # [id number] Given 07/02/2017 Influenza Vaccin e Quadrivalent Preser/Antibiotic Free Im Use [id number] Given 07/02/2016 Influenza Virus Vaccine, Quadrivalent, Split, Preservative Free [id number] Vital Signs Date Vital Result Comment 07/25/2020 10:46am BP Systolic 114 mmHg BP Diastolic 72 mmHg Height 66.4 inches 5'6.40" Weight 185.19 lb BMI (Body Mass Index) 29.5 kg/m2 Heart Rate 94 /min Respiratory Rate 16 /min Body Temperature 98.2 F O2 % BldC Oximetry 98 % [place] Body Weight 130 lb 06/11/2020 8:12am BP Systolic 118 mmHg BP Diastolic 68 mmHg Height 66.4 inches 5'6.40" Weight 189.50 lb BMI (Body Mass Index) 30.2 kg/m2 Heart Rate 78 /min Respiratory Rate 18 /min Body Temperature 96.7 F O2 % BldC Oximetry 97 % [place] Body Weight 130 lb Results Test Acquired Date Facility Test Result H/L Range Note Laboratory test finding 03/07/2020 [facility] Out[facility] T darrell (Registration) [address] [place] [address] [phone] Genital Culture FULL REPORT IN L <SEE NOTE> Normal 1 Comprehensive Metabolic Profil 03/01/[address] [address] [phone] Glucose, Fasting 95 mg/dL Normal 70-100 Blood Urea Nitrogen 12 mg/dL Normal 7-18 Creatinine For GFR 1.11 mg/dL Normal 0.55-1.30 Glomerular Filtration Rate 58.6 Low >60 2 Sodium Level 142 mEq/L Normal 136-145 Potassium [...] Normal 3.2-5.2 Albumin/Globulin Ratio 1.0 Low 1.2-2.2 Comprehensive Metabolic Profil 02/08/[address] [address] [phone] Glucose, Fasting 84 mg/dL Normal 70-100 Blood Urea Nitrogen 12 mg/dL Normal 7-18 Creatinine For GFR 0.99 mg/dL Normal 0.55-1.30 Glomerular Filtration Rate > 60.0 Normal >60 3 Sodium Level 140 mEq/L Normal 136-145 Potassium Serum 4.3 mEq/L Normal 3.5-5.1 Chloride Level 107 mEq/L Normal 98-107 Carbon Dioxide Level 25 mEq/L Normal 21-32 Anion Gap 8 mEq/L Normal 8-16 Calcium Level 8.8 mg/dL Normal 8.5-10.1 Ast/Sgot 54 U/L High 7-37 Alt/SGPT 120 U/L High 12-78 Alkaline Phosphatase 24 U/L Low 45-117 Bilirubin,Total 0.6 mg/dL Normal 0.2-1.0 Total Protein 7.1 GM/DL Normal 6.4-8.2 Albumin 3.7 GM/DL Normal 3.2-5.2 Albumin/Globulin Ratio 1.1 Low 1.2-2.2 FT4&TSH Panel 02/08/2020 [facility] nter [address] [place] [address] [phone] Thyroid Stimulating Hormone 1.530 uIU/ML Normal 0. 358-3.740 Free T4 0.91 ng/dL Normal 0.76-1.46 CBC With Differential 02/08/[address] [address] [phone] White Blood Count 7.3 10 Normal 4.0-10.0 Red Blood Count 4.56 10 Normal 4.00-5.40 Hemoglobin 13.1 g/dL Normal 12.0-15.5 Hematocrit 40.6 % Normal 36.0-47.0 Mean Corpuscular Volume 89.0 fl Normal 80.0-96.0 Mean Corpuscular Hemoglobin 28.7 pg Normal 27.0-33.0 Mean Corpuscular HGB Conc 32.3 g/dL Normal 32.0-36.5 Red Cell Distribution Width 14.7 % High 11.5-14.5 Platelet Count, Automated 261 10 Normal 150-450 Neutrophils % 71.9 % High 36.0-66.0 Lymph % 19.9 % Low 24.0-44.0 [place] % 6.1 % High 0.0-5.0 Eos % 1.1 % Normal 0.0-3.0 Baso % 0.6 % Normal 0.0-1.0 Immature Granulocyte % 0.4 % Normal 0-3.0 Nucleated Red Blood Cell % 0.0 % Normal 0-0 Neutrophils # 5.2 10 Normal 1.5-8.5 Lymph # 1.5 10 Normal 1.5-5.0 [place] # 0.4 10 Normal 0.0-0.8 Eos # 0.1 10 Normal 0.0-0.5 Baso # 0.0 10 Normal 0.0-0.2 Laboratory test finding 02/08/[address] [address] [phone] Hepatitis C Virus Shraddha Index 0.2 INDEX Normal <0.8 4 Hepatitis B Monitoring Profile 02/08/[address] [address] [phone] Hepatitis B Surface Antigen NEGATIVE Normal Nega tive Hepatitis B Surface Antibody POSITIVE Normal Positive Hepatitis B Core Antibody Igm NEGATIVE Normal Negative Laboratory test finding 02/08/[address] [address] [phone] Hepatitis A Antibody Igm NEGATIVE Normal Negativ e Laboratory test finding 02/07/2020 [facility] Outpatient T esting (Registration) [address] [place] [address] [phone] Hepatitis A IgG Total Positive Abnormal Negative 5 Laboratory test finding 01/25/2020 [facility] Urine neg 1 FULL REPORT IN LAB NOTES (eC W [...] NEGATIVE ICR test is considered CLIDAMYCIN SENSITIVE. 2 Units are mL/min/1.73 m2 Chronic Kidney Disease Staging per NKF: Stage I & II GFR >=60 Normal to Mildly Decreased Stage III GFR 30-59 Moderately Decreased Stage IV GFR 15-29 Severely Decreased Stage V GFR <15 Very Little GFR Left ESRD GFR <15 on VIDEOGRAPHER 3 Units are mL/min/1.73 m2 Chronic Kidney Disease Staging per NKF: Stage I & II GFR >=60 Normal to Mildly Decreased Stage III GFR 30-59 Moderately Decreased Stage IV GFR 15-29 Severely Decreased Stage V GFR <15 Very Little GFR Left ESRD GFR <15 on VIDEOGRAPHER 4 Negative Not infected with HCV, unless recent infection is suspected or other evidence exists to indicate HCV infection. 5 Performed at: RN - [facility] [address] [id number] Photographic Technician: Sherry Santos MD, Phone: [phone] Procedures Description No Information Available Medical Devices Description No Information Available Encounters Type Date Location Provider Dx Diagnosis Office Visit 07/25/2020 11:00a [facility] Rody Carreon D.O. R06.83 Snoring Z79.3 care home (current) use of h ormonal contraceptives F41.1 Generalized anxiety disorder R53.83 Other fatigue A56.02 Chlamydial vulvovaginitis Office Visit 06/11/2020 8:00a [facility] Rody Carreon D.O. Z79.3 roasterman (current) use of h ormonal contraceptives Office Visit 05/08/2020 10:40a [facility] Rody Carreon D.O. 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 Z00.00 Encntr for general adult med ical exam w/o abnormal findings F41.1 Generalized anxiety disorder Z88.1 Allergy status to other anti biotic agents status Z79.899 Other [facility] (current) dr pringle therapy Z13.29 Encounter for screening for oth suspected endocrine disorder Z13.0 Encntr screen for dis of the bld/bld-form org/immun [facility] Office Visit 01/25/2020 8:10a [facility] Rody Carreon D.O. Z30.011 Encounter for initial prescr iption of contraceptive pills Assessments Date Code Description Provider 07/25/2020 R06.83 Snoring Rody mays D.O. 07/25/2020 Z79.3 roasterman (current) use of hormo nal contraceptives Rody Carreon D.O. 07/25/2020 F41.1 Generalized anxiety disorder Denice Carreon D.OKadeem 07/25/2020 R53.83 Other fatigue Rody mays, D.O. 07/25/2020 A56.02 Chlamydial vulvovaginitis Rody Maldonado D.OKadeem 06/11/2020 Z79.3 roasterman (current) use of hormo nal contraceptives Rody Carreon D.O. 05/08/2020 G47.10 Hypersomnia, unspecified Rody Cristina D.O. 05/08/2020 R06.83 Snoring Rody mays, D.O. 05/08/2020 J35.8 Other chronic diseases of tonsil s and adenoids Rody Hicks D.OKadeem 03/07/2020 N76.0 Acute vaginitis DEBORA Lino 03/07/2020 F41.1 Generalized anxiety disorder DEBORA Byrne 02/08/2020 Z00.00 Encounter for genera l adult medical examination without abnormal findings Rody Carreon D.OKadeem 02/08/2020 F41.1 Generalized anxiety disorder Denice mey Carreon D.O. 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 02/08/2020 Z13.29 Encounter for screen ing for other suspected endocrine disorder Rody Carreon D.O. 02/08/2020 Z13.0 Encounter for screen ing for diseases of the blood and blood- forming organs and certain disorders involving the immune mechanism Rody Carreon D.O. 01/25/2020 Z30.011 Encounter for initial prescripti on of contraceptive pills Rody Carreon D.O. Plan of Treatment Future Appointment(s):* 08/09/2020 9:20 am - DEBORA Lino at [facility] Functional Status Description No Information Available Mental Status Description No Information Available Referrals Refer to Reason for Referral Status Appt Date [facility] This is a 39 year old female with hypersomnia and snoring. Please do nocturnal oximetry. Sent [address] [place] [address] [phone] Simón Verdin M.D. This is a 39 year old female with snoring and grade 4 tonsils. I am curious if you think she would benefit from tonsillectomy at this point as she is having hypersomnolence. I am obtaining nocturnal oximetry and then sleep study as well. Please evalaute and treat. Patient Notified 06/13/2020 [facility] [address], [address] [place], [place] [address] [phone]
--- OUTSIDE RECORDS SUMMARY | 2020-09-25 12:03 | CCD ---
Continuity of Care Document (CCD) Created on: 07/25/2020 Bessy Rowe External Reference #: [id number] : [id number] Sex: Female Author Author Bessy CARREON Organization Unknown Address [address] [place] [address] Phone [phone] Care Team Providers Care Sfdc Solution Architect Name Role Phone Rody Carreon D.O. AUT[facility] [phone] Problems Active Problems Provider Date Contraception care [...] of the pelvic region and thigh Rody kahn D.O. Onset: 03/18/2016 Vitamin D deficiency DEBORA [...] twice daily as needed for anxiety istop [id number] 20tabs F41. 1 Rody Carreon D.O. 05/18/2017 [...] CPT Code Status Date Vaccine Lot # [id number] Given 07/02/2017 Influenza Vaccin e Quadrivalent Preser/Antibiotic Free Im Use [id number] Given 07/02/2016 Influenza Virus Vaccine, Quadrivalent, Split, Preservative Free [id number] Vital Signs Date Vital Result Comment 07/25/2020 10:46am BP Systolic 114 mmHg BP Diastolic 72 mmHg Height 66.4 inches 5'6.40" Weight 185.19 lb BMI (Body Mass Index) 29.5 kg/m2 Heart Rate 94 /min Respiratory Rate 16 /min Body Temperature 98.2 F O2 % BldC Oximetry 98 % [place] Body Weight 130 lb 06/11/2020 8:12am BP Systolic 118 mmHg BP Diastolic 68 mmHg Height 66.4 inches 5'6.40" Weight 189.50 lb BMI (Body Mass Index) 30.2 kg/m2 Heart Rate 78 /min Respiratory Rate 18 /min Body Temperature 96.7 F O2 % BldC Oximetry 97 % [place] Body Weight 130 lb Results Test Acquired Date Facility Test Result H/L Range Note Laboratory test finding 03/07/2020 [facility] Outpatient T darrell (Registration) [place] [address] [phone] Genital Culture FULL REPORT IN L <SEE NOTE> Normal 1 Comprehensive Metabolic Profil 03/01/[address] [address] [phone] Glucose, Fasting 95 mg/dL Normal 70-100 Blood [...] 1.0 Low 1.2-2.2 Comprehensive Metabolic Profil 02/08/[address] [address] [phone] Glucose, Fasting 84 mg/dL Normal 70-100 Blood [...] Ratio 1.1 Low 1.2-2.2 FT4&TSH Panel 02/08/2020 [facility] nter [address] [place] [address] [phone] Thyroid Stimulating Hormone 1.530 uIU/ML Normal 0. 358-3.740 Free T4 0.91 ng/dL Normal 0.76-1.46 CBC With Differential 02/08/[address] [address] [phone] White Blood Count 7.3 10 Normal 4.0-10.0 [...] 36.0-66.0 Lymph % 19.9 % Low 24.0-44.0 [place] % 6.1 % High 0.0-5.0 Eos % 1.1 % Normal 0.0-3.0 Baso % 0.6 % Normal 0.0-1.0 Immature Granulocyte % 0.4 % Normal 0-3.0 Nucleated Red Blood Cell % 0.0 % Normal 0-0 Neutrophils # 5.2 10 Normal 1.5-8.5 Lymph # 1.5 10 Normal 1.5-5.0 [place] # 0.4 10 Normal 0.0-0.8 Eos # 0.1 10 Normal 0.0-0.5 Baso # 0.0 10 Normal 0.0-0.2 Laboratory test finding 02/08/[address] [address] [phone] Hepatitis C Virus Srhaddha Index 0.2 INDEX Normal <0.8 4 Hepatitis B Monitoring Profile 02/08/[address] [address] [phone] Hepatitis B Surface Antigen NEGATIVE Normal Nega tive Hepatitis B Surface Antibody POSITIVE Normal Positive Hepatitis B Core Antibody Igm NEGATIVE Normal Negative Laboratory test finding 02/08/[address] [address] [phone] Hepatitis A Antibody Igm NEGATIVE Normal Negativ e Laboratory test finding 02/07/2020 [facility] Outpatient T esting (Registration) [address] [place] [address] [phone] Hepatitis A IgG Total Positive Abnormal Negative [...] Little GFR Left ESRD GFR <15 on RADIOGRAPHER MAMMOGRAPHER 3 Units are mL/min/1.73 m2 Chronic Kidney Disease Staging per NKF: Stage I & II GFR >=60 Normal to Mildly Decreased Stage III GFR 30-59 Moderately Decreased Stage IV GFR 15-29 Severely Decreased Stage V GFR <15 Very Little GFR Left ESRD GFR <15 on RADIOGRAPHER MAMMOGRAPHER 4 Negative Not infected with HCV, unless recent infection is suspected or other evidence exists to indicate HCV infection. 5 Performed at: RN - [facility] [address] [id number] Virtual Classroom Manager: Sherry Santos MD, Phone: [phone] Procedures Description No Information Available Medical Devices Description No Information Available Encounters Type Date Location Provider Dx Diagnosis Office Visit 07/25/2020 11:00a [facility] Rody Carreon D.O. R06.83 Snoring Z79.3 jail (current) use of h ormonal contraceptives F41.1 Generalized anxiety disorder R53.83 Other fatigue A56.02 Chlamydial vulvovaginitis Office Visit 06/11/2020 8:00a [facility] Rody Carreon D.O. 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 Z00.00 Encntr for general adult med ical exam w/o abnormal findings F41.1 Generalized anxiety disorder Z88.1 Allergy status to other anti biotic agents status Z79.899 Other [facility] dr pringle therapy Z13.29 Encounter for screening for oth suspected endocrine disorder Z13.0 Encntr screen for dis of the bld/bld-form org/immun [facility] Office Visit 01/25/2020 8:10a Family [facility] Rody Carreon D.O. Z30.011 Encounter for initial prescr iption of contraceptive pills Assessments Date Code Description Provider 07/25/2020 R06.83 Snoring Rody mays D.O. 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 07/25/2020 F41.1 Generalized anxiety disorder Denice Carreon D.OKadeem 07/25/2020 R53.83 Other fatigue Rody mays, D.O. 07/25/2020 A56.02 Chlamydial vulvovaginitis Rody Maldonado D.OKadeem 06/11/2020 Z79.3 manager long term care (current) use of hormo nal contraceptives Rody [...] status Rody Hicks D.OKadeem 02/08/2020 Z79.899 Other manager long term care (current) drug t herapy Rody Carreon D.O. [...] 08/09/2020 9:20 am - DEBORA Lino at [facility] Functional Status Description No Information Available Mental Status Description No Information Available Referrals Refer to Reason for Referral Status Appt Date [facility] This is a 39 year old female with hypersomnia and snoring. Please do nocturnal oximetry. Sent [address] [place] [address] [phone] Simón Verdin M.D. This is a 39 year old female with snoring and grade 4 tonsils. I am curious if you think she would benefit from tonsillectomy at this point as she is having hypersomnolence. I am obtaining nocturnal oximetry and then sleep study as well. Please evalaute and treat. Patient Notified 06/13/2020 [facility] [address], [address] [place], [place] [address] [phone]
--- OUTSIDE RECORDS SUMMARY | 2020-09-25 12:03 | CCD | Continuity of Care Document ---
Author Author Bessy GALLOWAY Organization Unknown Address [address], [address] [place] [address] Phone [phone] Care Team Providers Care Manager Hris Name Role Phone Rody Carreon D.O. AUTM Justine Terence AUTM [phone] Problems Description No Active Problems Social History Type Date Description Comments Sex Unknown Tobacco Use Start: Unknown Never Smoked Cigarettes ETOH Use Rarely Tobacco Use Start: Unknown Non Smoker Recreational Drug Use Denies Drug Use Exercise Type/Frequency Exercises regularly Allergies, Adverse Reactions, Alerts Active Allergies Reaction Severity Comments Date Augmentin 11/09/2012 Medications Active Medications SIG Qnty Indications Ordering Provide r Date Ibuprofen 100mg/5ML Suspension 20 milliliters by mouth every 6 hours as needed 946ml Carlton Verdin MD 07/12/2020 Hydrocodone Bitartrate/Acetaminophen 7.5-325mg/15ML Solution 15 milliliters by mouth every 6 hours as needed for pa in 300ml Simón Verdin MD 07/12/2020 Zoloft 50mg Tablets 1 by mouth every day Unknown Fluticasone Propionate 50mcg/Act Suspension 2 sprays to each nostril daily Unknown Claritin 10mg Capsules 10 mg by mouth once per day Unknown Zonisamide 50mg Capsules Unknown Immunizations Description No Information Available Vital Signs Date Vital Result Comment 07/26/2020 8:41am Height 67 inches 5'7" Weight 185.00 lb BMI (Body Mass Index) 29.0 kg/m2 [place] Body Weight 135 lb Weight 83.916 kg 07/19/2020 10:02am Height 67 inches 5'7" Weight 185.00 lb BMI (Body Mass Index) 29.0 kg/m2 [place] Body Weight 135 lb Weight 83.916 kg Results Test Acquired Date Facility Test Result H/L Range Note Laboratory test finding 07/12/2020 [facility] [address] [place] [address] [phone] Pathology Request For Service (SEE NOTE) 1 1 FINAL DIAGNOSIS A - Right tonsil, tonsillectomy: Tonsillar lymphoid follicular hyperplasia. Actinomyces colonies are noted in tonsillar crypts. B - Left tonsil, tonsillectomy: Tonsillar lymphoid follicular hyperplasia. Actinomyces colonies are noted in tonsillar crypts. C - Uvula, excision: Uvula, without significant inflammatory changes. 07/16/2020 - 1015 CLINICAL DIAGNOSIS Tonsil hypertrophy and snoring 07/13/2020 - 1345 GROSS DIAGNOSIS A - Received in formalin labeled "right tonsil" is a 3.8 x 2.0 x 1.8 cm tonsil. The mucosal lining is smooth. Sectioning reveals deep crypts containing debris. Director Of Bands in one. B - Received in formalin labeled "left tonsil" is a 3.9 x 2.4 x 1.5 cm tonsil. The mucosal lining is smooth. Sectioning reveals deep crypts containing debris. Director Of Bands in one. C - Received in formalin labeled "uvula" is a 1.5 x 0.9 cm cone-shaped portion of soft tissue, covered by mucosa. No gross lesion is noted, bisected, all in one. - 07/13/2020 - 1345 Signed Gabriele Palma MD 07/16/2020 1157 Procedures Description No Information Available Medical Devices Description No Information Available Encounters Description No Information Available Assessments Date Code Description Provider 07/26/2020 J35.1 Hypertrophy of tonsils Byron cortes II, PA-C 07/26/2020 R06.83 Snoring Byron Galloway II, PA-C 07/19/2020 J35.1 Hypertrophy of tonsils Byron cortes II, PA-C 07/19/2020 R06.83 Snoring Byron Galloway II, PA-C 06/13/2020 J35.1 Hypertrophy of tonsils Simón walsh MD 06/13/2020 R06.83 Snoring Simón Verdin MD Plan of Treatment 07/26/2020 - Byron Galloway II, PA-C* J35.1 Hypertrophy of tonsils* Follow up:* 2w * R06.83 Snoring Functional Status Description No Information Available Mental Status Description No Information Available Referrals Refer to Reason for Referral Status Appt Date Simón Verdin MD snoring w/ lrg grade tonsils Sched ed 06/13/2020 [address] [place] [address] [phone]
--- OUTSIDE RECORDS SUMMARY | 2020-09-25 12:03 | CCD | Continuity of Care Document ---
Author Author Bessy CARREON Organization Unknown Address [address] [place] [address] Phone [phone] Care Team Providers Care Block Operator Name Role Phone Rody Carreon D.O. [facility] [phone] Problems Active Problems Provider Date Contraception care [...] twice daily as needed for anxiety istop [id number] 20tabs F41. 1 Rody Carreon D.O. 05/18/2017 [...] CPT Code Status Date Vaccine Lot # [id number] Given 07/02/2017 Influenza Vaccin e Quadrivalent Preser/Antibiotic Free Im Use [id number] Given 07/02/2016 Influenza Virus Vaccine, Quadrivalent, Split, Preservative Free [id number] Vital Signs Date Vital Result Comment 07/25/2020 10:46am BP Systolic 114 mmHg BP Diastolic 72 mmHg Height 66.4 inches 5'6.40" Weight 185.19 lb BMI (Body Mass Index) 29.5 kg/m2 Heart Rate 94 /min Respiratory Rate 16 /min Body Temperature 98.2 F O2 % BldC Oximetry 98 % Outlook Body Weight 130 lb 06/11/2020 8:12am BP Systolic 118 mmHg BP Diastolic 68 mmHg Height 66.4 inches 5'6.40" Weight 189.50 lb BMI (Body Mass Index) 30.2 kg/m2 Heart Rate 78 /min Respiratory Rate 18 /min Body Temperature 96.7 F O2 % BldC Oximetry 97 % Outlook Body Weight 130 lb Results Test Acquired Date Facility Test Result H/L Range Note GC & Chlamydia By Amp 07/25/[address] [address] [phone] Chlamydia Dna Amplification NEGATIVE Normal Nega tive 1 GC Dna Amplification NEGATIVE Normal Negative 2 Laboratory test finding 03/07/2020 [facility] Outpatient T darrell (Registration) [address] [place] [address] [phone] Genital Culture FULL REPORT IN L <SEE NOTE> Normal 3 Comprehensive Metabolic Profil 03/01/[address] [address] [phone] Glucose, Fasting 95 mg/dL Normal 70-100 Blood [...] 1.0 Low 1.2-2.2 Comprehensive Metabolic Profil 02/08/[address] [address] [phone] Glucose, Fasting 84 mg/dL Normal 70-100 Blood Urea Nitrogen 12 mg/dL Normal 7-18 Creatinine For GFR 0.99 mg/dL Normal 0.55-1.30 Glomerular Filtration Rate > 60.0 Normal >60 5 Sodium Level 140 mEq/L Normal 136-145 Potassium [...] Ratio 1.1 Low 1.2-2.2 FT4&TSH Panel 02/08/2020 [facility]ter [address] [place] [address] [phone] Thyroid Stimulating Hormone 1.530 uIU/ML Normal 0. 358-3.740 Free T4 0.91 ng/dL Normal 0.76-1.46 CBC With Differential 02/08/[address] [address] [phone] White Blood Count 7.3 10 Normal 4.0-10.0 [...] 36.0-66.0 Lymph % 19.9 % Low 24.0-44.0 Cottle % 6.1 % High 0.0-5.0 Eos % 1.1 % Normal 0.0-3.0 Baso % 0.6 % Normal 0.0-1.0 Immature Granulocyte % 0.4 % Normal 0-3.0 Nucleated Red Blood Cell % 0.0 % Normal 0-0 Neutrophils # 5.2 10 Normal 1.5-8.5 Lymph # 1.5 10 Normal 1.5-5.0 Cottle # 0.4 10 Normal 0.0-0.8 Eos # 0.1 10 Normal 0.0-0.5 Baso # 0.0 10 Normal 0.0-0.2 Laboratory test finding 02/08/[address] [address] [phone] Hepatitis C Virus Shraddha Index 0.2 INDEX Normal <0.8 6 Hepatitis B Monitoring Profile 02/08/[address] [address] [phone] Hepatitis B Surface Antigen NEGATIVE Normal Nega tive Hepatitis B Surface Antibody POSITIVE Normal Positive Hepatitis B Core Antibody Igm NEGATIVE Normal Negative Laboratory test finding 02/08/[address] [address] [phone] Hepatitis A Antibody Igm NEGATIVE Normal Negativ e Laboratory test finding 02/07/2020 [facility] Outpatient T esting (Registration) [address] [place] [address] [phone] Hepatitis A IgG Total Positive Abnormal Negative 7 Laboratory test finding 01/25/2020 [facility]house Inhouse Urine neg 1 A negative test result does not [...] Little GFR Left ESRD GFR <15 on DISTRIBUTED GENERATION PROJECT MANAGER 5 Units are mL/min/1.73 m2 Chronic Kidney Disease Staging per NKF: Stage I & II GFR >=60 Normal to Mildly Decreased Stage III GFR 30-59 Moderately Decreased Stage IV GFR 15-29 Severely Decreased Stage V GFR <15 Very Little GFR Left ESRD GFR <15 on DISTRIBUTED GENERATION PROJECT MANAGER 6 Negative Not infected with HCV, unless recent infection is suspected or other evidence exists to indicate HCV infection. 7 Performed at: RN - [facility] [address] [id number] Hospital Technician: Sherry Santos MD, Phone: [phone] Procedures Description No Information Available Medical Devices Description No Information Available Encounters Type Date Location Provider Dx Diagnosis Office Visit 07/25/2020 11:00a [facility] Mat Carreon D.O. R06.83 Snoring Z79.3 emt intermediate (current) use of h ormonal contraceptives F41.1 Generalized anxiety disorder R53.83 Other fatigue A56.02 Chlamydial vulvovaginitis Office Visit 06/11/2020 8:00a [facility] Mat Carreon D.O. Z79.3 emt intermediate (current) use of h ormonal contraceptives Office Visit 05/08/2020 10:40a [facility] Mat Carreon D.O. 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 DEBORA Lino N76.0 Acute vaginitis F41.1 Generalized anxiety disorder Office Visit 02/08/2020 8:30a [facility] Rody Carreon D.O. Z00.00 Encntr for general adult med ical exam w/o abnormal findings F41.1 Generalized anxiety disorder Z88.1 Allergy status to other anti biotic agents status Z79.899 Other residential (current) dr pringle therapy Z13.29 Encounter for screening for oth suspected endocrine disorder Z13.0 Encntr screen for dis of the bld/bld-form org/immun [facility] Office Visit 01/25/2020 8:10a [facility] Mat Carreon D.O. Z30.011 Encounter for initial prescr iption of contraceptive pills Assessments Date Code Description Provider 07/25/2020 R06.83 Snoring Rody Ansari-Chelo mays, D.O. 07/25/2020 Z79.3 jail (current) use of hormo nal contraceptives Rody Carreon D.O. 07/25/2020 F41.1 Generalized anxiety disorder Denice Carreon D.O. 07/25/2020 R53.83 Other fatigue Rody mays, D.O. 07/25/2020 A56.02 Chlamydial vulvovaginitis Rody Maldonado, D.O. 06/11/2020 Z79.3 jail (current) use of hormo nal contraceptives Rody Carreon D.O. 05/08/2020 G47.10 Hypersomnia, unspecified Rody Cristina D.O. 05/08/2020 R06.83 Snoring Rody Ansari-Whitney davon, D.O. 05/08/2020 J35.8 Other chronic diseases of tonsil s and adenoids Rody Hicks D.O. 03/07/2020 N76.0 Acute vaginitis DEBORA Lino 03/07/2020 F41.1 Generalized anxiety disorder DEBORA Byrne 02/08/2020 Z00.00 Encounter for genera l adult medical examination without abnormal findings Rody Carreon D.O. 02/08/2020 F41.1 Generalized anxiety disorder Denice mey Izabella Carreon 02/08/2020 Z88.1 Allergy status to other antibiot ic agents status Rody Hicks D.O. 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 [...] 08/09/2020 9:20 am - DEBORA Lino at [facility] Functional Status Description No Information Available Mental Status Description No Information Available Referrals Refer to Reason for Referral Status Appt Date [facility] This is a 39 year old female with hypersomnia and snoring. Please do nocturnal oximetry. Sent [address] [place] [address] [phone] Simón Verdin M.D. This is a 39 year old female with snoring and grade 4 tonsils. I am curious if you think she would benefit from tonsillectomy at this point as she is having hypersomnolence. I am obtaining nocturnal oximetry and then sleep study as well. Please evalaute and treat. Patient Notified 06/13/2020 [facility] [address], [address] [place], [place] [address] [phone]
--- OUTSIDE RECORDS SUMMARY | 2020-09-25 12:03 | CCD | Continuity of Care Document ---
Author Author Bessy GALLOWAY Organization Unknown Address [address] [address], [address] [place] [address] Phone [phone] Care Team Providers Care Supervisory Air Intercept Controller Name Role Phone Rody Carreon D.O. AUTM Justine Terence AUTM [phone] Problems Description No Active Problems Social History Type Date Description Comments Sex Unknown Tobacco Use Start: Unknown Never Smoked Cigarettes ETOH Use Rarely Tobacco Use Start: Unknown Non Smoker Recreational Drug Use Denies Drug Use Exercise Type/Frequency Exercises regularly Allergies, Adverse Reactions, Alerts Active Allergies Reaction Severity Comments Date Augmentin 11/09/2012 Medications Active Medications SIG Qnty Indications Ordering Provide r Date Zoloft 50mg Tablets 1 by mouth every day Unknown Fluticasone Propionate 50mcg/Act Suspension 2 sprays to each nostril daily Unknown Claritin 10mg Capsules 10 mg by mouth once per day Unknown Zonisamide 50mg Capsules Unknown History Medications Ibuprofen 100mg/5ML Suspension 20 milliliters by mouth every 6 hours as needed 946ml Carlton Verdin MD 07/12/2020 - 08/08/2020 Hydrocodone Bitartrate/Acetaminophen 7.5-325mg/15ML Solution 15 milliliters by mouth every 6 hours as needed for pa in 300ml Simón Verdin MD 07/12/2020 - 020 Immunizations Description No Information Available Vital Signs Date Vital Result Comment 08/09/2020 10:26am Height 67 inches 5'7" Weight 185.00 lb BMI (Body Mass Index) 29.0 kg/m2 Tina Body Weight 135 lb Weight 83.916 kg BSA (Body Surface Area) 1.96 m2 07/26/2020 8:41am Height 67 inches 5'7" Weight 185.00 lb BMI (Body Mass Index) 29.0 kg/m2 Tina Body Weight 135 lb Weight 83.916 kg BSA (Body Surface Area) 1.96 m2 Results Test Acquired Date Facility Test Result H/L Range Note Laboratory test finding 07/12/2020 [facility] Main Lab [address] [place] [address] [phone] Pathology Request For Service (SEE NOTE) 1 [...] smooth. Sectioning reveals deep crypts containing debris. Egg Buyer in one. B - Received in formalin labeled "left tonsil" is a 3.9 x 2.4 x 1.5 cm tonsil. The mucosal lining is smooth. Sectioning reveals deep crypts containing debris. Egg Buyer in one. C - Received in formalin labeled "uvula" is a 1.5 x 0.9 cm cone-shaped portion of soft tissue, covered by mucosa. No gross lesion is noted, bisected, all in one. - 07/13/2020 - 1345 Signed Gabriele Palma MD 07/16/2020 1157 Procedures Description No Information Available Medical Devices Description No Information Available Encounters Description No Information Available Assessments Date Code Description Provider 08/09/2020 J35.1 Hypertrophy of tonsils Byron cortes II, PA-C 08/09/2020 R06.83 Snoring Byron Galloway II, PA-C 07/26/2020 J35.1 Hypertrophy of tonsils Byron cortes II, PA-C 07/26/2020 R06.83 Snoring Byron Galloway II, PA-C 07/19/2020 J35.1 Hypertrophy of tonsils Byron cortes II, PA-C 07/19/2020 R06.83 Snoring Byron Galloway II, PA-C 06/13/2020 J35.1 Hypertrophy of tonsils Simón walsh MD 06/13/2020 R06.83 Snoring Simón Verdin MD Plan of Treatment No Information Available Functional Status Description No Information Available Mental Status Description No Information Available Referrals Refer to Dr Reason for Referral Status Appt Date Simón Verdin MD snoring w/ lrg grade tonsils Schedul ed 06/13/[address] [address] [phone]
--- OUTSIDE RECORDS SUMMARY | 2020-09-25 12:03 | CCD | Continuity of Care Document ---
Author Author Bessy GALLOWAY Organization Unknown Address [address], [address] [place] [address] Phone [phone] Care Team Providers Care Product Ambassador Name Role Phone Rody Carreon D.O. AUTM [phone] Justine Terence AUTM [phone] Problems Description No Active Problems Social History [...] lb BMI (Body Mass Index) 29.0 kg/m2 [place] Body Weight 135 lb Weight 83.916 kg 07/19/2020 10:02am Height 67 inches 5'7" Weight 185.00 lb BMI (Body Mass Index) 29.0 kg/m2 [place] Body Weight 135 lb Weight 83.916 kg Results Test Acquired Date Facility Test Result H/L Range Note Laboratory test finding 07/12/2020 [facility] Main Lab [address] [place] [address] [phone] Pathology Request For Service (SEE NOTE) 1 [...] smooth. Sectioning reveals deep crypts containing debris. Beading Machine Operator in one. B - Received in formalin labeled "left tonsil" is a 3.9 x 2.4 x 1.5 cm tonsil. The mucosal lining is smooth. Sectioning reveals deep crypts containing debris. Beading Machine Operator in one. C - Received in formalin labeled "uvula" is a 1.5 x 0.9 cm cone-shaped portion of soft tissue, covered by mucosa. No gross lesion is noted, bisected, all in one. - 07/13/2020 - 1345 Signed Gabriele Palma MD 07/16/2020 1157 Procedures Description No Information Available Medical Devices Description No Information Available Encounters Description No Information Available Assessments Date Code Description Provider 07/19/2020 J35.1 Hypertrophy of tonsils Byron cortes [...] lrg grade tonsils Schedul ed 06/13/2020 [address] [place] [address] [phone]
--- OUTSIDE RECORDS SUMMARY | 2020-09-25 12:04 | CCD ---
Author Author [facility] Organization [facility] Address Unknown Phone Unavailable Care Team Providers Care Career Services Manager Name Role Phone KRISTI JARRETT MD Unavailable Unavailable KRISTI JARRETT MD Unavailable Unavailable KRISTI JARRETT MD Unavailable Unavailable KRISTI JARRETT MD Unavailable Unavailable KRISTI JARRETT MD Unavailable Unavailable KRISTI JARRETT MD Unavailable Unavailable KRISTI JARRETT MD Unavailable Unavailable KRISTI JARRETT MD Unavailable Unavailable KRISTI JARRETT MD Unavailable Unavailable KRISTI JARRETT MD Unavailable Unavailable KRISTI JARRETT MD Unavailable Unavailable KRISTI JARRETT MD Unavailable Unavailable KRISTI JARRETT MD Unavailable Unavailable KRISTI JARRETT MD Unavailable Unavailable KRISTI JARRETT MD Unavailable Unavailable KRISTI JARRETT MD Unavailable Unavailable KRISTI JARRETT MD Unavailable Unavailable KRISTI JARRETT MD Unavailable Unavailable KRISTI JARRETT MD Unavailable Unavailable KRISTI JARRETT MD Unavailable Unavailable KRISTI JARRETT MD Unavailable Unavailable KRISTI JARRETT MD Unavailable Unavailable KRISTI JARRETT MD Unavailable Unavailable KRISTI JARRETT MD Unavailable Unavailable KRISTI JARRETT MD Unavailable Unavailable KRISTI JARRETT MD Unavailable Unavailable KRISTI JARRETT MD Unavailable Unavailable KRISTI JARRETT MD Unavailable Unavailable KRISTI JARRETT MD Unavailable Unavailable KRISTI JARRETT MD Unavailable Unavailable KRISTI JARRETT MD Unavailable Unavailable KRISTI JARRETT MD Unavailable Unavailable KRISTI JARRETT MD Unavailable Unavailable KRISTI JARRETT MD Unavailable Unavailable KOLBY, KRISTI FARAH Unavailable Unavailable KOLBY, KRISTI FARAH Unavailable Unavailable KOLBY, KRISTI FARAH Unavailable Unavailable KOLBY, KRISTI FARAH Unavailable Unavailable KOLBY, KRISTI FARAH Unavailable Unavailable KOLBY, KRISTI FARAH Unavailable Unavailable Juliano, Hitesh PA Unavailable Unavailable Juliano, Hitesh PA Unavailable Unavailable Juliano, Hitesh PA Unavailable Unavailable Juliano, Hitesh PA Unavailable Unavailable Juliano, Hitesh PA Unavailable Unavailable Juliano, Hitesh PA Unavailable Unavailable Juliano, Hitesh PA Unavailable Unavailable Juliano, Hitesh PA Unavailable Unavailable Juliano, Hitesh PA Unavailable Unavailable Juliano, Hitesh PA Unavailable Unavailable Juliano, Hitesh PA Unavailable Unavailable Juliano, Hitesh PA Unavailable Unavailable Juliano, Hitesh PA Unavailable Unavailable Juliano, Hitesh PA Unavailable Unavailable Juliano, Hitesh PA Unavailable Unavailable Juliano, Hitesh PA Unavailable Unavailable Juliano, Hitesh PA Unavailable Unavailable Juliano, Hitesh PA Unavailable Unavailable Juliano, Hitesh PA Unavailable Unavailable Juliano, Hitesh PA Unavailable Unavailable Juliano, Hitesh PA Unavailable Unavailable Juliano, Hitesh PA Unavailable Unavailable Juliano, Hitesh PA Unavailable Unavailable Juliano, Hitesh PA Unavailable Unavailable Juliano, Hitesh PA Unavailable Unavailable Juliano, Hitesh PA Unavailable Unavailable Juliano, Hitesh PA Unavailable Unavailable Juliano, Hitesh PA Unavailable Unavailable Juliano, Hitesh PA Unavailable Unavailable Juliano, Hietsh PA Unavailable Unavailable Juliano, Hitesh PA Unavailable Unavailable Juliano, Hitesh PA Unavailable Unavailable Juliano, Hitesh PA Unavailable Unavailable Juliano, Hitesh PA Unavailable Unavailable Juliano, Hitesh PA Unavailable Unavailable Juliano, Hitesh PA Unavailable Unavailable Juliano, Hitesh PA Unavailable Unavailable Juliano, Hitesh PA Unavailable Unavailable Juliano, Hitesh PA Unavailable Unavailable Juliano, Hitesh PA Unavailable Unavailable Juliano, Hitesh PA Unavailable Unavailable Juliano, Hitesh PA Unavailable Unavailable Juliano, Hitesh PA Unavailable Unavailable Juliano, Hitesh PA Unavailable Unavailable Juliano, Hitesh PA Unavailable Unavailable Juliano, Hitesh PA Unavailable Unavailable Juliano, Hitesh PA Unavailable Unavailable Juliano, Hitesh PA Unavailable Unavailable MARIA ANTONIA-BLANCA, RODY DO Unavailable Unavailable MARIA ANTONIA-BLANCA, RODY DO Unavailable Unavailable MARIA ANTONIA-BLANCA, RODY DO Unavailable Unavailable MARIA ANTONIA-BLANCA, RODY DO Unavailable Unavailable MARIA ANTONIA-BLANCA, RODY DO Unavailable Unavailable MARIA ANTONIA-BLANCA, RODY DO Unavailable Unavailable MARIA ANTONIA-BLANCA, RODY DO Unavailable Unavailable MARIA ANTONIA-BLANCA, RODY DO Unavailable Unavailable MARIA ANTONIA-BLANCA, RODY DO Unavailable Unavailable MARIA ANTONIA-BLANCA, RODY DO Unavailable Unavailable MARIA ANTONIA-BLANCA, RODY DO Unavailable Unavailable MARIA ANTONIA-BLANCA, RODY DO Unavailable Unavailable MARIA ANTONIA-BLANCA, RODY DO Unavailable Unavailable MARIA ANTONIA-BLANCA, RODY DO Unavailable Unavailable MARIA ANTONIA-BLANCA, RODY DO Unavailable Unavailable MARIA ANTONIA-BLANCA, RODY DO Unavailable Unavailable MARIA ANTONIA-BLANCA, RODY DO Unavailable Unavailable MARIA ANTONIA-BLANCA, RODY DO Unavailable Unavailable MARIA ANTONIA-BLANCA, RODY DO Unavailable Unavailable MARIA ANTONIA-BLANCA, RODY DO Unavailable Unavailable MARIA ANTONIA-BLANCA, RODY DO Unavailable Unavailable MARIA ANTONIA-BLANCA, RODY DO Unavailable Unavailable MARIA ANTONIA-BLANCA, RODY DO Unavailable Unavailable MARIA ANTONIA-BLANCA, RODY DO Unavailable Unavailable MARIA ANTONIA-BLANCA, RODY DO Unavailable Unavailable MARIA ANTONIA-BLANCA, RODY DO Unavailable Unavailable MARIA ANTONIA-BLANCA, RODY DO Unavailable Unavailable MARIA ANTONIA-BLANCA, RODY DO Unavailable Unavailable MARIA ANTONIA-BLANCA, RODY DO Unavailable Unavailable MARIA ANTONIA-BLANCA, RODY DO Unavailable Unavailable MARIA ANTONIA-BLANCA, RODY DO Unavailable Unavailable MARIA ANTONIA-BLANCA, RODY DO Unavailable Unavailable MARIA ANTONIA-BLANCA, RODY DO Unavailable Unavailable MARIA ANTONIA-BLANCA, RODY DO Unavailable Unavailable MARIA ANTONIA-BLANCA, RODY DO Unavailable Unavailable MARIA ANTONIA-BLANCA, RODY DO Unavailable Unavailable MARIA ANTONIA-BLANCA, RODY DO Unavailable Unavailable MARIA ANTONIA-BLANCA, RODY DO Unavailable Unavailable MARIA ANTONIA-BLANCA, RODY DO Unavailable Unavailable MARIA ANTONIA-BLANCA, RODY DO Unavailable Unavailable MARIA ANTONIA-BLANCA, RODY DO Unavailable Unavailable MARIA ANTONIA-BLANCA, RODY DO Unavailable Unavailable MARIA ANTONIA-BLANCA, RODY DO Unavailable Unavailable MARIA ANTONIA-BLANCA, RODY DO Unavailable Unavailable MARIA ANTONIA-BLANCA, RODY DO Unavailable Unavailable MARIA ANTONIA-BLANCA, RODY DO Unavailable Unavailable MARIA ANTONIA-BLANCA, RODY DO Unavailable Unavailable MARIA ANTONIA-BLANCA, RODY DO Unavailable Unavailable MARIA ANTONIA-BLANCA, RODY DO Unavailable Unavailable MARIA ANTONIA-BLANCA, RODY DO Unavailable Unavailable MARIA ANTONIA-BLANCA, RODY DO Unavailable Unavailable MARIA ANTONIA-BLANCA, RODY DO Unavailable Unavailable MARIA ANTONIA-BLANCA, RODY DO Unavailable Unavailable MARIA ANTONIA-BLANCA, RODY DO Unavailable Unavailable MARIA ANTONIA-BLANCA, RODY DO Unavailable Unavailable MARIA ANTONIA-BLANCA, RODY DO Unavailable Unavailable MARIA ANTONIA-BLANCA, RODY DO Unavailable Unavailable MARIA ANTONIA-BLANCA, RODY DO Unavailable Unavailable MARIA ANTONIA-BLANCA, RODY DO Unavailable Unavailable MARIA ANTONIA-BLANCA, RODY DO Unavailable Unavailable MARIA ANTONIA-BLANCA, RODY DO Unavailable Unavailable MARIA ANTONIA-BLANCA, RODY DO Unavailable Unavailable MARIA ANTONIA-BLANCA, RODY DO Unavailable Unavailable MARIA ANTONIA-BLANCA, RODY DO Unavailable Unavailable MARIA ANTONIA-BLANCA, RODY DO Unavailable Unavailable MARIA ANTONIA-BLANCA, RODY DO Unavailable Unavailable MARIA ANTONIA-BLANCA, RODY DO Unavailable Unavailable MARIA ANTONIA-BLANCA, RODY DO Unavailable Unavailable MARIA ANTONIA-BLANCA, RODY DO Unavailable Unavailable MARIA ANTONIA-BLANCA, RODY DO Unavailable Unavailable MARIA ANTONIA-BLANCA, RODY DO Unavailable Unavailable MARIA ANTONIA-BLANCA, RODY DO Unavailable Unavailable MARIA ANTONIA-BLANCA, RODY DO Unavailable Unavailable MARIA ANTONIA-BLANCA, RODY DO Unavailable Unavailable MARIA ANTONIA-BLANCA, RODY DO Unavailable Unavailable MARIA ANTONIA-BLANCA, RODY DO Unavailable Unavailable MARIA ANTONIA-BLANCA, RODY DO Unavailable Unavailable MARIA ANTONIA-BLANCA, RODY DO Unavailable Unavailable MARIA ANTONIA-BLANCA, RODY DO Unavailable Unavailable MARIA ANTONIA-BLANCA, RODY DO Unavailable Unavailable MARIA ANTONIA-BLANCA, RODY DO Unavailable Unavailable MARIA ANTONIA-BLANCA, RODY DO Unavailable Unavailable MARIA ANTONIA-BLANCA, RODY DO Unavailable Unavailable MARIA ANTONIA-BLANCA, RODY DO Unavailable Unavailable MARIA ANTONIA-BLANCA, RODY DO Unavailable Unavailable MARIA ANTONIA-BLANCA, RODY DO Unavailable Unavailable MARIA ANTONIA-BLANCA, RODY DO Unavailable Unavailable MARIA ANTONIA-BLANCA, RODY DO Unavailable Unavailable MARIA ANTONIA-BLANCA, RODY DO Unavailable Unavailable MARIA ANTONIA-BLANCA, RODY DO Unavailable Unavailable MARIA ANTONIA-BLANCA, RODY DO Unavailable Unavailable MARIA ANTONIA-BLANCA, RODY DO Unavailable Unavailable MARIA ANTONIA-BLANCA, RODY DO Unavailable Unavailable MARIA ANTONIA-BLANCA, RODY DO Unavailable Unavailable MARIA ANTONIA-BLANCA, RODY DO Unavailable Unavailable MARIA ANTONIA-BLANCA, RODY DO Unavailable Unavailable MARIA ANTONIA-BLANCA, RODY DO Unavailable Unavailable MARIA ANTONIA-BLANCA, RODY DO Unavailable Unavailable MARIA ANTONIA-BLANCA, RODY DO Unavailable Unavailable MARIA ANTONIA-BLANCA, RODY DO Unavailable Unavailable MARIA ANTONIA-BLANCA, RODY DO Unavailable Unavailable MARIA ANTONIA-BLANCA, RODY DO Unavailable Unavailable MARIA ANTONIA-BLANCA, RODY DO Unavailable Unavailable MARIA ANTONIA-BLANCA, RODY DO Unavailable Unavailable MARIA ANTONIA-BLANCA, RODY DO Unavailable Unavailable MARIA ANTONIA-BLANCA, RODY DO Unavailable Unavailable MARIA ANTONIA-BLANCA, RODY DO Unavailable Unavailable MARIA ANTONIA-BLANCA, RODY DO Unavailable Unavailable MARIA ANTONIA-BLANCA, RODY DO Unavailable Unavailable MARIA ANTONIA-BLANCA, RODY DO Unavailable Unavailable MARIA ANTONIA-BLANCA, RODY DO Unavailable Unavailable MARIA ANTONIA-BLANCA, RODY DO Unavailable Unavailable MARIA ANTONIA-BLANCA, RODY DO Unavailable Unavailable MARIA ANTONIA-BLANCA, RODY DO Unavailable Unavailable MARIA ANTONIA-BLANCA, RODY DO Unavailable Unavailable MARIA ANTONIA-BLANCA, RODY DO Unavailable Unavailable MARIA ANTONIA-BLANCA, RODY DO Unavailable Unavailable MARIA ANTONIA-BLANCA, RODY DO Unavailable Unavailable MARIA ANTONIA-BLANCA, RODY DO Unavailable Unavailable MARIA ANTONIA-BLANCA, RODY DO Unavailable Unavailable MARIA ANTONIA-BLANCA, RODY DO Unavailable Unavailable MARIA ANTONIA-BLANCA, RODY DO Unavailable Unavailable MARIA ANTONIA-BLANCA, RODY DO Unavailable Unavailable MARIA ANTONIA-BLANCA, RODY DO Unavailable Unavailable MARIA ANTONIA-BLANCA, RODY DO Unavailable Unavailable MARIA ANTONIA-BLANCA, RODY DO Unavailable Unavailable MARIA ANTONIA-BLANCA, RODY DO Unavailable Unavailable MARIA ANTONIA-BLANCA, RODY DO Unavailable Unavailable MARIA ANTONIA-BLANCA, RODY DO Unavailable Unavailable MARIA ANTONIA-BLANCA, RODY DO Unavailable Unavailable MARIA ANTONIA-BLANCA, RODY DO Unavailable Unavailable MARIA ANTONIA-BLANCA, RODY DO Unavailable Unavailable MARIA ANTONIA-BLANCA, RODY DO Unavailable Unavailable MARIA ANTONIA-BLANCA, RODY DO Unavailable Unavailable MARIA ANTONIA-BLANCA, RODY DO Unavailable Unavailable MARIA ANTONIA-BLANCA, RODY DO Unavailable Unavailable MARIA ANTONIA-BLANCA, RODY DO Unavailable Unavailable MARIA ANTONIA-BLANCA, RODY DO Unavailable Unavailable MARIA ANTONIA-BLANCA, RODY DO Unavailable Unavailable MARIA ANTONIA-BLANCA, RODY DO Unavailable Unavailable MARIA ANTONIA-BLANCA, RODY DO Unavailable Unavailable MARIA ANTONIA-BLANCA, RODY DO Unavailable Unavailable MARIA ANTONIA-BLANCA, RODY DO Unavailable Unavailable MARIA ANTONIA-BLANCA, RODY DO Unavailable Unavailable MARIA ANTONIA-BLANCA, RODY DO Unavailable Unavailable MARIA ANTONIA-BLANCA, RODY DO Unavailable Unavailable MARIA ANTONIA-BLANCA, RODY DO Unavailable Unavailable MARIA ANTONIA-BLANCA, RODY DO Unavailable Unavailable MARIA ANTONIA-BLANCA, RODY DO Unavailable Unavailable MARIA ANTONIA-BLANCA, RODY DO Unavailable Unavailable MARIA ANTONIA-BLANCA, RODY DO Unavailable Unavailable MARIA ANTONIA-BLANCA, RODY DO Unavailable Unavailable MARIA ANTONIA-BLANCA, RODY DO Unavailable Unavailable MARIA ANTONIA-BLANCA, RODY DO Unavailable Unavailable MARIA ANTONIA-BLANCA, RODY DO Unavailable Unavailable MARIA ANTONIA-BLANCA, RODY DO Unavailable Unavailable MARIA ANTONIA-BLANCA, RODY DO Unavailable Unavailable MARIA ANTONIA-BLANCA, RODY DO Unavailable Unavailable MARIA ANTONIA-BLANCA, RODY DO Unavailable Unavailable MARIA ANTONIA-BLANCA, RODY DO Unavailable Unavailable MARIA ANTONIA-BLANCA, RODY DO Unavailable Unavailable MARIA ANTONIA-BLANCA, RODY DO Unavailable Unavailable MARIA ANTONIA-BLANCA, RODY DO Unavailable Unavailable MARIA ANTONIA-BLANCA, RODY DO Unavailable Unavailable O'basia, A Everett PA Unavailable Unavailable O'basia, A Everett PA Unavailable Unavailable O'basia, A Everett PA Unavailable Unavailable O'basia, A Everett PA Unavailable Unavailable O'basia, A Everett PA Unavailable Unavailable O'basia, A Everett PA Unavailable Unavailable O'basia, A Everett PA Unavailable Unavailable O'basia, A Everett PA Unavailable Unavailable O'basia, A Everett PA Unavailable Unavailable O'basia, A Everett PA Unavailable Unavailable O'basia, A Everett PA Unavailable Unavailable O'basia, A Everett PA Unavailable Unavailable O'basia, A Everett PA Unavailable Unavailable O'basia, A Evreett PA Unavailable Unavailable O'basia, A Everett PA Unavailable Unavailable O'basia, A Everett PA Unavailable Unavailable O'basia, A Everett PA Unavailable Unavailable O'basia, A Everett PA Unavailable Unavailable O'basia, A Everett PA Unavailable Unavailable O'basia, A Everett PA Unavailable Unavailable O'basia, A Everett PA Unavailable Unavailable O'basia, A Everett PA Unavailable Unavailable O'basia, A Everett PA Unavailable Unavailable O'basia, A Everett PA Unavailable Unavailable O'basia, A Everett PA Unavailable Unavailable O'basia, A Everett PA Unavailable Unavailable O'basia, A Evertet PA Unavailable Unavailable O'basia, A Everett PA Unavailable Unavailable O'basia, A Everett PA Unavailable Unavailable O'basia, A Everett PA Unavailable Unavailable O'basia, A Everett PA Unavailable Unavailable O'basia, A Everett PA Unavailable Unavailable Re-disclosure Warning The records that you are about to access may contain information from federally-assisted alcohol or drug abuse programs. If such information is present, then the following federally mandated warning applies: This information has been disclosed to you from records protected by federal confidentiality rules (42 CFR part 2). The federal rules prohibit you from making any further disclosure of this information unless further disclosure is expressly permitted by the written consent of the person to whom it pertains or as otherwise permitted by 42 CFR part 2. A general authorization for the release of medical or other information is NOT sufficient for this purpose. The Federal rules restrict any use of the information to criminally investigate or prosecute any alcohol or drug abuse patient.The records that you are about to access may contain highly sensitive health information, the redisclosure of which is protected by Article 27-F of the [facility] Public Health law. If you continue you may have access to information: Regarding HIV / AIDS; Provided by facilities licensed or operated by the [facility] Office of Mental Health; or Provided by the [facility] Office for People With Developmental Disabilities. If such information is present, then the following [facility] mandated warning applies: This information has been disclosed to you from confidential records which are protected by state law. State law prohibits you from making any further disclosure of this information without the specific written consent of the person to whom it pertains, or as otherwise permitted by law. Any unauthorized further disclosure in violation of state law may result in a fine or chcf sentence or both. A general authorization for the release of medical or other information is NOT sufficient authorization for further disc losure. Family History Family Member Name Family Member Gender Family Member Status Date o f Status Description Data Source(s) Unknown Unknown Problem [facility] ([facility]) Unknown Unknown Problem [facility] ([facility]) father Unknown Female Problem [facility] ([facility]) Encounters Encounter Providers Location Date Indications Data Source(s ) Outpatient Attender: KRISTI JARRETT MD Main office - [facility] 09/18/2020 06:15:00 AM EST [facility] ([facility] wyman, [place]) Outpatient Attender: Hitesh CAZARES [facility] 08/09/2020 01:20:00 PM EST [facility] ([facility]) Outpatient Attender: RODY JACOBS [facility] 07/25/2020 10:00:00 AM EST [facility] ([facility] Outpatient Attender: RODY JACOBS [facility] 06/11/2020 08:00:00 AM EDT [facility] ([facility] Outpatient Attender: RODY JACOBS [facility] 05/08/2020 10:40:00 AM EDT [facility] ([facility] Outpatient Attender: Hitesh CAZARES [facility] 03/07/2020 03:20:00 PM EDT [facility] ([facility]) Outpatient Attender: KRISTI JARRETT MD Main office - [facility] 02/27/2020 12:00:00 PM EDT [facility] ([facility], [place]) Outpatient Referrer: RODY JACOBS DO 02/15/2020 09 :15:00 AM EDT [facility] Outpatient Referrer: RODY JACOBS DO 02/15/2020 09 :06:00 AM EDT [facility] Outpatient Referrer: RODY JACOBS DO 02/15/2020 09 :06:00 AM EDT [facility] Outpatient Referrer: RODY JACOBS DO 02/15/2020 09 :05:00 AM EDT [facility] Outpatient Referrer: RODY JACOBS DO 02/10/2020 12 :54:00 PM EDT [facility] Outpatient Attender: RODY JACOBS [facility] 02/08/2020 08:30:00 AM EDT [facility]) Outpatient Attender: RODY JACOBS [facility] 01/25/2020 08:10:00 AM EDT [facility] ([facility] Outpatient Attender: KRISTI JARRETT MD Main office [facility] 12/23/2019 12:45:00 PM EDT [facility] ([facility]) Outpatient Attender: Everett CAZARES [facility] 12/19/2019 01:00:00 PM EDT [facility] ([facility]) Outpatient Attender: KRISTI JARRETT MD Main office - [facility] 10/24/2019 02:00:00 PM EST [facility] ([facility]) Outpatient Attender: KRISTI JARRETT MD Main office [facility] 09/22/2019 10:45:00 AM EST [facility] ([facility]) Outpatient Attender: Hitesh CAZARES [facility] 08/24/2019 07:40:00 AM EST [facility] ([facility]) Immunizations Vaccine Date Status Description Data Source(s) INFLUENZA VIRUS VACCINE QUADRIVAL [id number](6 MOS AND UP)/PF 10/01/2019 12:00:00 AM EST completed [facility] Medications Medication Brand Name Start Date Product Form Dose Route Admi nistrative Instructions Pharmacy Instructions Status Indications Reaction Description Data Source(s) Jaimiess 91 Day Pack 0.15 mg-30 mcg (84)/10 mcg (7) LE VONORGESTREL/ETHINYL ESTRADIOL AND ETHINYL ESTRADIOL 09/14/2020 12:00:00 AM EST tablets,dose pack,3 month 182 TAKE ONE TABLET BY MOUTH EVERY D AY TAKE ONE TABLET BY MOUTH EVERY DAY SOLD: 09/15/2020 [facility] Ibuprofen 20 MG/ML Oral Suspension Ibuprofen 07/12/2020 12:00:00 AM EST ORAL completed [facility] ([facility], ) Acetaminophen 21.7 MG/ML / Hydrocodone Bitartrate 0.5 MG/ML Oral Solution Hydrocodone Bitartrate/Acetaminophen 07/12/2020 12:00:00 AM EST ORAL completed [facility] ([facility] ) 50 mg 07/11/2020 12:00:00 AM EST capsule 90 TAKE THREE CAPSULES BY MOUTH EVERY DAY AT NIGHT TAKE THREE CAPSULES BY MOUTH EVERY DAY AT NIGHT SOLD: 08/16/2020 [facility] Camrese Camrese 06/11/2020 12:00:00 AM EDT ORAL active [facility] ([facility]) 0.15 mg-30 mcg (84)/10 mcg (7) 06/11/2020 12:00: 00 AM EDT tablets,dose pack,3 month 91 TAKE ONE TABLET BY MOUTH EVERY D AY TAKE ONE TABLET BY MOUTH EVERY DAY SOLD: 06/13/2020 [facility] Seasonique Seasonique 06/11/2020 12:00:00 AM EDT ORAL c ompleted [facility] ([facility]) 500 mg 04/23/2020 12:00:00 AM EDT tablet 2 TAKE 2 TABLET BY MOUTH A SINGLE DOSE TAKE 2 TABLET BY MOUTH A SINGLE DOSE SOLD: 04/23/2020 [facility] Cephalexin 500 MG Oral Capsule CEPHALEXIN 03/13/2020 12:00:00 AM EDT capsule 21 TAKE ONE CAPSULE BY MOUTH THREE TIMES A DAY UNTIL FINI SHED TAKE ONE CAPSULE BY MOUTH THREE TIMES A DAY UNTIL FINISHED SOLD: 03/13/2020 [facility] Cephalexin 500 MG Oral Capsule [Keflex] Keflex 03/13/2020 12:00:0 0 AM EDT ORAL completed [facility] ([facility]) 50 mg 03/11/2020 12:00:00 AM EDT capsule 90 TAKE 3 CAPSULES BY MOUTH NIGHTLY TAKE 3 CAPSULES BY MOUTH NIGHTLY SOLD: 03/13/2020 [facility] 50 mg 03/11/2020 12:00:00 AM EDT capsule 90 TAKE 3 CAPSULES BY MOUTH NIGHTLY TAKE 3 CAPSULES BY MOUTH NIGHTLY SOLD: 05/24/2020 [facility] 50 mg 03/07/2020 12:00:00 AM EDT tablet 30 TAKE ONE TABLET BY MOUTH EVERY DAY TAKE ONE TABLET BY MOUTH EVERY DAY SOLD: 04/09/2020 [facility] 50 mg 03/07/2020 12:00:00 AM EDT tablet 30 TAKE ONE TABLET BY MOUTH EVERY DAY TAKE ONE TABLET BY MOUTH EVERY DAY SOLD: 08/16/2020 [facility] 150 mg 03/07/2020 12:00:00 AM EDT tablet 3 TAKE 1 TABLET BY MOUTH NEEDED TAKE 1 TABLET BY MOUTH NEEDED SOLD: 03/07/2020 [facility] 50 mg 03/07/2020 12:00:00 AM EDT tablet 30 TAKE ONE TABLET BY MOUTH EVERY DAY TAKE ONE TABLET BY MOUTH EVERY DAY SOLD: 07/09/2020 [facility] Sertraline 50 MG Oral Tablet Sertraline HCL 03/07/2020 12:00:00 AM EDT ORAL active [facility] ([facility]) 50 mg 03/07/2020 12:00:00 AM EDT tablet 30 TAKE ONE TABLET BY MOUTH EVERY DAY TAKE ONE TABLET BY MOUTH EVERY DAY SOLD: 03/07/2020 [facility] 50 mg 03/07/2020 12:00:00 AM EDT tablet 30 TAKE ONE TABLET BY MOUTH EVERY DAY TAKE ONE TABLET BY MOUTH EVERY DAY SOLD: 05/11/2020 [facility] Fluconazole 150 MG Oral Tablet Fluconazole 03/07/2020 12:00:00 AM EDT ORAL completed [facility] ([facility]) 50 mg 03/07/2020 12:00:00 AM EDT tablet 30 TAKE ONE TABLET BY MOUTH EVERY DAY TAKE ONE TABLET BY MOUTH EVERY DAY SOLD: 06/13/2020 [facility] Alprazolam 0.25 MG Oral Tablet ALPRAZOLAM 02/17/2020 12:00:00 AM EDT tablet 20 TAKE ONE TABLET BY MOUTH TWICE A DAY NEEDED FOR ANXIETY MAXIMUM DAILY DOSE = 2 TAKE ONE TABLET BY MOUTH TWICE A DAY NEEDED FOR ANXIETY MAXIMUM DAILY DOSE = 2 SOLD: 02/19/2020 [facility] Norgestim-Eth Estrad Triphasic Norgestim-Eth Estrad Triphasi c 01/25/2020 12:00:00 AM EDT ORAL completed [facility] ([facility]) Tri-Lo-Vida 28 Day Pack 0.18/0.215/0.25 mg-25 mcg NORG ESTIMATE-ETHINYL ESTRADIOL 01/25/2020 12:00:00 AM EDT tablet 84 TAKE ONE TABLET BY MOUTH EVERY DAY TAKE ONE TABLET BY MOUTH EVERY DAY SOLD: 04/19/2020 [facility] 0.18/0.215/0.25 mg-25 mcg 01/25/2020 12:00:00 AM EDT tablet 84 TAKE ONE TABLET BY MOUTH EVERY DAY TAKE ONE TABLET BY MOUTH EVERY DAY SOLD: 01/25/2020 [facility] 50 mg 12/24/2019 12:00:00 AM EDT capsule 90 TAKE THREE CAPSULES BY MOUTH IN THE EVENING TAKE THREE CAPSULES BY MOUTH IN THE EVENING SOLD: 12/27/2019 [facility] 50 mg 12/24/2019 12:00:00 AM EDT capsule 90 TAKE THREE CAPSULES BY MOUTH IN THE EVENING TAKE THREE CAPSULES BY MOUTH IN THE EVENING SOLD: 02/19/2020 [facility] 50 mcg/actuation 12/21/2019 12:00:00 AM EDT spray,suspension 48 USE 2 SPRAYS IN EACH NOSTRIL ONCE DAILY USE 2 SPRAYS IN EACH NOSTRIL ONCE DAILY SOLD: 12/21/2019 [facility] 10 mg 12/19/2019 12:00:00 AM EDT tablet 90 TAKE ONE TABLET BY MOUTH AT BEDTIME TAKE ONE TABLET BY MOUTH AT BEDTIME SOLD: 07/09/2020 [facility] 10 mg 12/19/2019 12:00:00 AM EDT tablet 90 TAKE ONE TABLET BY MOUTH AT BEDTIME TAKE ONE TABLET BY MOUTH AT BEDTIME SOLD: 12/21/2019 [facility] 100 mg 12/14/2019 12:00:00 AM EDT tablet 14 TAKE ONE TABLET BY MOUTH TWICE A DAY TAKE ONE TABLET BY MOUTH TWICE A DAY SOLD: 12/14/2019 [facility] 100 mg 11/21/2019 12:00:00 AM EDT tablet 30 TAKE ONE TABLET BY MOUTH EVERY DAY TAKE ONE TABLET BY MOUTH EVERY DAY SOLD: 11/24/2019 [facility] 100 mg 11/21/2019 12:00:00 AM EDT tablet 30 TAKE ONE TABLET BY MOUTH EVERY DAY TAKE ONE TABLET BY MOUTH EVERY DAY SOLD: 02/03/2020 [facility] 100 mg 11/21/2019 12:00:00 AM EDT tablet 30 TAKE ONE TABLET BY MOUTH EVERY DAY TAKE ONE TABLET BY MOUTH EVERY DAY SOLD: 12/31/2019 [facility] 75 mg 10/26/2019 12:00:00 AM EST capsule 10 TAKE ONE CAPSULE BY MOUTH TWICE A DAY FOR 5 DAYS TAKE ONE CAPSULE BY MOUTH TWICE A DAY FOR 5 DAYS SOLD: 10/26/2019 [facility] 50 mg 10/25/2019 12:00:00 AM EST capsule 90 TAKE THREE CAPSULES BY MOUTH EVERY NIGHT TAKE THREE CAPSULES BY MOUTH EVERY NIGHT SOLD: 10/26/2019 [facility] zonisamide 50 MG Oral Capsule Zonisamide 10/24/2019 12:00:00 AM EST ORAL active [facility] ([facility]) 50 mg 07/15/2019 12:00:00 AM EST capsule 60 TAKE ONE CAPSULE BY MOUTH TWICE A DAY TAKE ONE CAPSULE BY MOUTH TWICE A DAY SOLD: 09/24/2019 [facility] 50 mg 07/15/2019 12:00:00 AM EST capsule 60 TAKE ONE CAPSULE BY MOUTH TWICE A DAY TAKE ONE CAPSULE BY MOUTH TWICE A DAY SOLD: 11/24/2019 [facility] 50 mg 07/15/2019 12:00:00 AM EST capsule 60 TAKE ONE CAPSULE BY MOUTH TWICE A DAY TAKE ONE CAPSULE BY MOUTH TWICE A DAY SOLD: 08/18/2019 [facility] 100 mg 07/08/2019 12:00:00 AM EDT tablet 30 TAKE ONE TABLET BY MOUTH EVERY DAY TAKE ONE TABLET BY MOUTH EVERY DAY SOLD: 09/20/2019 [facility] 100 mg 07/08/2019 12:00:00 AM EDT tablet 30 TAKE ONE TABLET BY MOUTH EVERY DAY TAKE ONE TABLET BY MOUTH EVERY DAY SOLD: 10/24/2019 [facility] 100 mg 07/08/2019 12:00:00 AM EDT tablet 30 TAKE ONE TABLET BY MOUTH EVERY DAY TAKE ONE TABLET BY MOUTH EVERY DAY SOLD: 08/18/2019 [facility] Insurance Providers Payer name Policy type / Coverage type Policy ID Covered libertarian ID Covered libertarian's relationship to nguyen Policy Nguyen Plan Information [facility] [id number] SP [id number] [facility] [id number] [facility] [id number] SP [id number] [facility] O [id number] S [id number] [employer] B [id number] S [id number] [facility] [id number] SP [id number] [employer] [place] 306/806 [id number] SP [id number] [employer] Health Maintenance Organization (HMO) [id number] Self [id number] [employer] Maintenance Organization (HMO) [id number] Self [id number] [employer] [id number] Self [id number] [facility] Commercial [id number] Family Dependent [id number] [employer] Health Maintenance Organization (HMO) [id number] Self [id number] [employer] [id number] Self [id number] [facility] Commercial [id number] Family Dependent [id number] [employer] [id number] Self [id number] [facility] Commercial [id number] Family Dependent [id number] [employer] [place] 306/806 [id number] SP [id number] [employer] [id number] Self [id number] [facility] Commercial [id number] Family Dependent [id number] [employer] Commercial [id number] Self [id number] [employer] [place] PPO 302/307 [id number] SP [id number] [employer] [id number] Self [id number] [facility] Commercial [id number] Family Dependent [id number] [employer] [id number] Self [id number] [facility] Commercial [id number] Family Dependent [id number] [employer] [id number] Self [id number] [facility] Commercial [id number] Family Dependent [id number] [employer] [id number] Self [id number] [facility] Commercial [id number] Family Dependent [id number] [facility] Commercial [id number] Family Dependent [id number] [facility] MEHUL O [id number] P [id number] [facility] Commercial [id number] Family Dependent [id number] [facility] Commercial [id number] Family Dependent [id number] [facility] Commercial [id number] Family Dependent [id number] [facility] Commercial [id number] Family Dependent [id number] [facility] Commercial [id number] Family Dependent [id number] [facility] Commercial [id number] Family Dependen t [id number] [facility] [id number] [id number] [facility] Commercial [id number] Family Dependent [id number] [facility] Commercial [id number] Family Dependent [id number] [facility] Commercial Family Dependent [facility] F [id number] SPOUSE [id number] [facility] F [id number] SPOUSE [id number] Results ID Date Data Source [id number] 07/25/2020 11:17:[address] [facility] ([facility]) Name Value Range Interpretation Code Description Data Suzie rce(s) Supporting Document(s) Chlamydia Dna Amplification Laboratory test result Normal (applies to non- numeric results) [facility] ([facility]) A negative test result does not exclude the possibility of infection because test results may be affected by improper specimen collection, technical error, specimen mix-up, concurrent antibiotic therapy, or the number of organisms in the specimen which may be below the sensitivity of the test. GC Dna Amplification Laboratory test result Norm al (applies to non-numeric results) [facility] ([facility]) A negative test result does not exclude the possibility of infection because test results may be affected by improper specimen collection, technical error, specimen mix-up, concurrent antibiotic therapy, or the number of organisms in the specimen which may be below the sensitivity of the test. ID Date Data Source [id number] 07/12/2020 03:37:[address] [facility] ([facility], ) Name Value Range Interpretation Code Description Data Suzie rce(s) Supporting Document(s) Surgical pathology study Laboratory test result [facility] ([facility], ) FINAL DIAGNOSIS A - Right tonsil, tonsillectomy: Tonsillar lymphoid follicular hyperplasia. Actinomyces colonies are noted in tonsillar crypts. B - Left tonsil, tonsillectomy: Tonsillar lymphoid follicular hyperplasia. Actinomyces colonies are noted in tonsillar crypts. C - Uvula, excision: Uvula, without significant inflammatory changes. 07/16/2020 - 1015 CLINICAL DIAGNOSIS Tonsil hypertrophy and snoring 07/13/2020 - 1344 GROSS DIAGNOSIS A - Received in formalin labeled "right tonsil" is a 3.8 x 2.0 x 1.8 cm tonsil. The mucosal lining is smooth. Sectioning reveals deep crypts containing debris. 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 B - Received in formalin labeled "left tonsil" is a 3.9 x 2.4 x 1.5 cm tonsil. The mucosal lining is smooth. Sectioning reveals deep crypts containing debris. 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 C - Received in formalin labeled "uvula" is a 1.5 x 0.9 cm cone-shaped portion of soft tissue, covered by mucosa. No gross lesion is noted, bisected, all in one. - 07/13/2020 - 1344 Signed Gabriele Palma MD 07/16/2020 1157 ID Date Data Source [id number] 07/07/2020 11:00:00 AM EDT [facility] Name Value Range Interpretation Code Description Data Suzie rce(s) Supporting Document(s) SARS coronavirus 2 RNA [facility] This lab was ordered by [facility] and reported by [facility]. ID Date Data Source [id number] 03/07/2020 03:14:00 PM EDT [facility] ([facility]) Name Value Range Interpretation Code Description Data Suzie rce(s) Supporting Document(s) Bacteria identified in Genital specimen by Aerobe cult ure Laboratory test result Normal (applies to non-numeric results) [facility] ([facility]) <content>FULL REPORT IN LAB NOTES ([facility] a nd [facility]).</content>
<content>NORMAL ARIELA PRESENT</content>
<content></content>
<content>ORGANISM 1: STREP AGALACTIAE GROUP B</content>
<content></content>
<content>QUANTITY OF GROWTH FEW</content>
<content></content>
<content>ORGANISM 2: YEAST LIKE ORGANISM</content>
<content></content>
<content>QUANTITY OF GROWTH HEAVY</content>
<content></content>
<content></content>
<content>ORG ANISM 1: STREP AGALACTIAE GROUP B</content>
<content>ORGANISM 2: YEAST LIKE ORGANISM</content>
<content></content>
<content>STREP AGALACTIAE GROUP B: REACTION</content>
<content>ICR (INDUCIBLE CC RESISTANCE) IV ICR TEST RESULT</content>
<content>TETRACYCLINE PO 250 mg qid >=16 R</content>
<content> PENICILLIN G IV 1 mu q6H 0.12 S</content>
<content>PENICILLIN G IV 1 mu q6h 0.12 S</content>
<content>PENICILLIN G PO 250mg q6h fasting 0.12 S</content>
<content>AMPICILLIN IV 500mg q6h <=0.25 S</content>
<content>AMPICILLIN PO 500mg q6h fasting <=0.25 S</content>
<content>ERYTHROMYCIN IV 500mg q6h <=0.12 S</content>
<content>ERYTHROMYCIN PO 500mg q6h <=0.12 S</content>
<content>LEVOFLOXACIN IV 500mg qd 1 S</content>
<content>LEVOFLOXACIN PO 250mg qd 1 S</content>
<content>LEVOFLOXACIN PO 500mg qd 1 S</content>
<content> VANCOMYCIN IV 500mg q8h 0.5 S</content>
<content>MOXIFLOXACIN (AVELOX) IV 400MG QD 0.12 S</content>
<content>MOXIFLOXACIN (AVELOX) PO 400MG QD 0.12 S</content>
<content>CEFTRIAXONE IV 1gm q24h <=0.12 S</content>
<content>CEFOTAXIME IV 1gm q8h <=0.12 S</content>
<content>An isolate with a (+) POSITIVE ICR test is considered</content>
<content>CLINDAMYCIN RESISTANT; however, clindamycin may still</content>
<content>be effective in some patients.</content>
<content>An isolate with a (-) NEGATIVE ICR test is considered</content>
<content>CLIDAMYCIN SENSITIVE.</content>
<content></content> ID Date Data Source [id number] 03/01/2020 07:21:[address] [facility] ([facility]) Name Value Range Interpretation Code Description Data Suzie rce(s) Supporting Document(s) Glucose, Fasting 95 mg/dL 70-100 Normal (applies to non-numeric results) [facility] ([facility]) Blood Urea Nitrogen 12 mg/dL 7-18 Normal (applies to non-nume jamari results) [facility] ([facility]) Glomerular Filtration Rate 58.[address] [facility] ([facility]) <content>Units are mL/min/1.73 m2</content>
<content></content>
<content>Chronic Kidney Disease Staging per NKF:</content>
<content></content>
<content>Stage I & II GFR >=60 Normal to Mildly Decreased</content>
<content>Stage III GFR 30- 59 Moderately Decreased</content>
<content>Stage IV GFR 15-29 Severely Decreased</content>
<content>Stage V GFR <15 Very Little GFR Left</content>
<content>ESRD GFR <15 on SHEET ROCK NAILER</content>
<content></content> Sodium Level 142 meq/L 136-145 Normal (applies to non-numeric res ults) [facility] ([facility]) Creatinine For GFR 1.11 mg/dL 0.55-1.30 Normal (applies to non -numeric results) [facility] ([facility]) Potassium Serum 3.9 meq/L 3.5-5.1 Normal (applies to non-numeric results) [facility] ([facility]) Chloride Level 111 meq/L 98-107 Above high normal [facility] ([facility]) Anion Gap 7 meq/L 8-16 Below low normal [facility] ( [facility]) Carbon Dioxide Level 24 meq/L 21-32 Normal (applies to non-num marilynn results) [facility] ([facility]) Calcium Level 8.7 mg/dL 8.5-10.1 Normal (applies to non-numeric re sults) [facility] ([facility]) Ast/Sgot 29 U/L 7-37 Normal (applies to non-numeric resul ts) [facility] ([facility]) Alt/SGPT 43 U/L 12-78 Normal (applies to non-numeric resul ts) [facility] ([facility]) Alkaline Phosphatase 32 U/L 45-117 Below low normal [facility] ([facility]) Bilirubin,Total 0.4 mg/dL 0.2-1.0 Normal (applies to non-numeric results) [facility] ([facility]) Total Protein 7.1 GM/DL 6.4-8.2 Normal (applies to non-numeric re sults) [facility] ([facility]) Albumin 3.6 GM/DL 3.2-5.2 Normal (applies to non-numeric resul ts) [facility] ([facility]) Albumin/Globulin Ratio 1.0 1.2-2.2 Below low normal [facility] ([facility]) ID Date Data Source [id number] 02/15/2020 12:00:00 AM EDT [facility] Rody Hicks DO Patient Name: RICARDO [id number] Date of : 1980 2 Date of Exam: 02/15/2020JULIETTE Hdz [id number]#: Fax: [id number] EXAM: US ABDOMEN, LIMITED SINGLE ORGAN,QUADRANTCLINICAL INFORMATION: Elevated LFT's.Multiple ultrasonographic images of the liver show the hepatic parenchymalecho texture to appear unremarkable. There are no focal masses. There isno intrahepatic ductal dilatation. The common bile duct measuresapproximately 4 mm in its greatest transverse dimension. Multipleultrasonographic images of the gallbladder show no focal or diffusegallbladder wall thickening. There are no echogenic foci within thegallbladder lumen, which casts acoustic shadows. There is nopericholecystic edema. Images of the pancreatic region show no grossabnormality.The imaged portion of the right kidney is unremarkable.IMPRESSION:Unremarkable right upper quadrant ultrasound.Accredited by the [employer] in General Ultrasound.MUKUND Plummer/Volodymyr you for referring RICARDO PADGETT to our office. Electronically Signed - MANE CLEARY DO 02/15/20 17:11 Name Value Range Interpretation Code Description Data Suzie rce(s) Supporting Document(s) ID Date Data Source [id number] 02/08/2020 09:12:[address] [facility] ([facility]) Name Value Range Interpretation Code Description Data Suzie rce(s) Supporting Document(s) Hepatitis A virus IgM Ab [Units/volume] in Serum by Edwin rodriguez Laboratory test result Normal (applies to non-numeric results) [facility] ([facility]) ID Date Data Source [id number] 02/08/2020 09:12:[address] [facility] ([facility]) Name Value Range Interpretation Code Description Data Suzie rce(s) Supporting Document(s) Hepatitis B Surface Antigen Laboratory test result Normal (applies to non- numeric results) [facility] ([facility]) Hepatitis B Core Antibody Igm Laboratory test result Normal (applies to non- numeric results) [facility] ([facility]) Hepatitis B Surface Antibody Laboratory test result Normal (applies to non- numeric results) [facility] ([facility]) ID Date Data Source [id number] 02/08/2020 09:12:00 AM EDT [facility]) Name Value Range Interpretation Code Description Data Suzie rce(s) Supporting Document(s) Hepatitis C virus Ab [Units/volume] in Serum by Immunoassay 0.2 INDEX Normal (applies to non-numeric results) [facility] ([facility]) Negative Not infected with HCV, unless recent infection is suspected or other evidence exists to indicate HCV infection. ID Date Data Source [id number] 02/08/2020 09:12:00 AM EDT [facility]) Name Value Range Interpretation Code Description Data Suzie rce(s) Supporting Document(s) White Blood Count 7.3 10 4.0-10.0 Normal (applies to non-numeri c results) [facility] ([facility]) Red Blood Count 4.56 10 4.00-5.40 Normal (applies to non-numeric results) [facility] ([facility]) Hematocrit 40.6 % 36.0-47.0 Normal (applies to non-numeric resul ts) [facility] ([facility]) Mean Corpuscular Volume 89.0 fl 80.0-96.0 Normal ( applies to non-numeric results) [facility] ([facility]) Hemoglobin 13.1 g/dL 12.0-15.5 Normal (applies to non-numeric resul ts) [facility] ([facility]) Mean Corpuscular HGB Conc 32.3 g/dL 32.0-36.5 Normal (applies to non-numeric results) [facility] ([facility]) Red Cell Distribution Width 14.7 % 11.5-14.[address] [facility] ([facility]) Mean Corpuscular Hemoglobin 28.7 pg 27.0-33.0 Norm al (applies to non-numeric results) [facility] ([facility]) Lymph % 19.9 % 24.0-44.[address] [facility] ( [facility]) Platelet Count, Automated 261 10 150-450 Normal (applies to non-numeric results) [facility] ([facility]) Neutrophils % 71.9 % 36.0-66.0 Above high normal [facility] ([facility]) [place] % 6.1 % 0.0-5.0 Above high normal [facility] ([facility]) Eos % 1.1 % 0.0-3.0 Normal (applies to non-numeric resul ts) [facility] ([facility]) Baso % 0.6 % 0.0-1.0 Normal (applies to non-numeric resul ts) [facility] ([facility]) Immature Granulocyte % 0.4 % 0-3.0 Normal (applies to non-n umeric results) [facility] ([facility]) Neutrophils # 5.2 10 1.5-8.5 Normal (applies to non-numeric re sults) [facility] ([facility]) Nucleated Red Blood Cell % 0.0 % 0-0 Normal (applies to n on-numeric results) [facility] ([facility]) Lymph # 1.5 10 1.5-5.0 Normal (applies to non-numeric resul ts) [facility] ([facility]) Eos # 0.1 10 0.0-0.5 Normal (applies to non-numeric resul ts) [facility] ([facility]) [place] # 0.4 10 0.0-0.8 Normal (applies to non-numeric resul ts) [facility] ([facility]) Baso # 0.0 10 0.0-0.2 Normal (applies to non-numeric resul ts) [facility] ([facility]) ID Date Data Source [id number] 02/08/2020 09:12:00 AM EDT [facility] ([facility]) Name Value Range Interpretation Code Description Data Suzie rce(s) Supporting Document(s) Thyroid Stimulating Hormone 1.530 uIU/ML 0.358-3.740 Norm al (applies to non- numeric results) [facility] ([facility]) Free T4 0.91 ng/dL 0.76-1.46 Normal (applies to non-numeric resul ts) [facility] ([facility]) ID Date Data Source [id number] 02/08/2020 09:12:00 AM EDT [facility] ([facility]) Name Value Range Interpretation Code Description Data Suzie rce(s) Supporting Document(s) Blood Urea Nitrogen 12 mg/dL 7-18 Normal (applies to non-nume jamari results) [facility] ([facility]) Glucose, Fasting 84 mg/dL 70-100 Normal (applies to non-numeric results) [facility] ([facility]) Glomerular Filtration Rate Laboratory test result Normal (applies to non- numeric results) [facility] ([facility]) <content>Units are mL/min/1.73 m2</content>
<content></content>
<content>Chronic Kidney Disease Staging per NKF:</content>
<content></content>
<content>Stage I & II GFR >=60 Normal to Mildly Decreased</content>
<content>Stage III GFR 30- 59 Moderately Decreased</content>
<content>Stage IV GFR 15-29 Severely Decreased</content>
<content>Stage V GFR <15 Very Little GFR Left</content>
<content>ESRD GFR <15 on SHEET ROCK NAILER</content>
<content></content> Creatinine For GFR 0.99 mg/dL 0.55-1.30 Normal (applies to non -numeric results) [facility] ([facility]) Sodium Level 140 meq/L 136-145 Normal (applies to non-numeric res ults) [facility] ([facility]) Chloride Level 107 meq/L 98-107 Normal (applies to non-numeric r esults) [facility] ([facility]) Potassium Serum 4.3 meq/L 3.5-5.1 Normal (applies to non-numeric results) [facility] ([facility]) Calcium Level 8.8 mg/dL 8.5-10.1 Normal (applies to non-numeric re sults) [facility] ([facility]) Carbon Dioxide Level 25 meq/L 21-32 Normal (applies to non-num marilynn results) [facility] ([facility]) Anion Gap 8 meq/L 8-16 Normal (applies to non-numeric resul ts) [facility] ([facility]) Alt/SGPT 120 U/L 12-78 Above high normal [facility] ([facility]) Alkaline Phosphatase 24 U/L 45-117 Below low normal [facility] ([facility]) Ast/Sgot 54 U/L 7-37 Above high normal [facility] ([facility]) Bilirubin,Total 0.6 mg/dL 0.2-1.0 Normal (applies to non-numeric results) [facility] ([facility]) Albumin 3.7 GM/DL 3.2-5.2 Normal (applies to non-numeric resul ts) [facility] ([facility]) Total Protein 7.1 GM/DL 6.4-8.2 Normal (applies to non-numeric re sults) [facility] ([facility]) Albumin/Globulin Ratio 1.1 1.2-2.2 Below low normal [facility] ([facility]) ID Date Data Source [id number] 02/07/2020 09:12:00 AM EDT [facility] ([facility]) Name Value Range Interpretation Code Description Data Suzie rce(s) Supporting Document(s) Hepatitis A virus IgG Ab [Units/volume] in Serum Laboratory test result Abnormal (applies to non-numeric results) [facility] ([facility]) Performed at: - [facility] [place] [id number] [employer] Specialist: Sherry aSntos MD, Phone: [phone] ID Date Data Source [id number] 01/25/2020 08:19:00 AM EDT [facility] ([facility]) Name Value Range Interpretation Code Description Data Suzie rce(s) Supporting Document(s) Inhouse Urine Laboratory test result [facility] ([facility]) Procedure Social History Code Duration Value Status Description Data Source(s ) Smoking 07/25/2020 12:00:00 AM EST Never Smoked Cigarettes com pleted Never Smoked Cigarettes [facility] ([facility]) Vital Signs ID Date Data Source UNK Name Value Range Interpretation Code Description Data Source(s) [place] body weight 130 [lb_av] 130 [lb_av] [facility] T ([facility]) Oxygen saturation in Arterial blood by Pulse oximetry 98 % 98 % [facility] ([facility]) Body temperature 98.9 [degF] 98.9 [degF] [facility] ([facility]) Respiratory rate 18 /min 18 /min [facility] ( [facility]) Heart rate 65 /min 65 /min [facility] ([facility]) Body mass index (BMI) [Ratio] 30.3 kg/m2 30.3 k g/m2 [facility] ([facility]) Body weight 190.00 [lb_av] 190.00 [lb_av] [facility] T ([facility]) Body height 66.4 [in_i] 66.4 [in_i] [facility] ([facility]) 5'6.40" Diastolic blood pressure 84 mm[Hg] 84 mm[Hg] [facility] ([facility]) Systolic blood pressure 126 mm[Hg] 126 mm[Hg] [facility] Body surface area Derived from formula 1.[address] [facility] ([facility]) Body weight 83.[address] [facility] ([facility]) [place] body weight 135 [lb_av] 135 [lb_av] [facility] T ([facility]) Body mass index (BMI) [Ratio] 29.0 kg/m2 29.0 k g/m2 [facility] ([facility]) Body weight 185.00 [lb_av] 185.00 [lb_av] [facility] ([facility]) Body height 67 [in_i] 67 [in_i] [facility] ([facility]) 5'7" Body surface area Derived from formula 1.[address] [facility] ([facility]) Body weight 83.[address] [facility] ([facility]) [place] body weight 135 [lb_av] 135 [lb_av] [facility] ([facility]) Body mass index (BMI) [Ratio] 29.0 kg/m2 29.0 k g/m2 [facility] ([facility]) Body weight 185.00 [lb_av] 185.00 [lb_av] [facility] ([facility]) Body height 67 [in_i] 67 [in_i] [facility] ([facility]) 5'7" [place] body weight 130 [lb_av] 130 [lb_av] [facility] ([facility]) Oxygen saturation in Arterial blood by Pulse oximetry 98 % 98 % [facility] ([facility]) Body temperature 98.2 [degF] 98.2 [degF] [facility] ([facility]) Respiratory rate 16 /min 16 /min [facility] ( [facility]) Heart rate 94 /min 94 /min [facility] ([facility]) Body mass index (BMI) [Ratio] 29.5 kg/m2 29.5 k g/m2 [facility] ([facility]) Body weight 185.19 [lb_av] 185.19 [lb_av] [facility] ([facility]) Body height 66.4 [in_i] 66.4 [in_i] [facility] ([facility]) 5'6.40" Diastolic blood pressure 72 mm[Hg] 72 mm[Hg] [facility] ([facility]) Systolic blood pressure 114 mm[Hg] 114 mm[Hg] [facility] Body weight 83.[address] [facility] ([facility]) [place] body weight 135 [lb_av] 135 [lb_av] [facility] T ([facility]) Body mass index (BMI) [Ratio] 29.0 kg/m2 29.0 k g/m2 [facility] ([facility]) Body weight 185.00 [lb_av] 185.00 [lb_av] [facility] ([facility]) Body height 67 [in_i] 67 [in_i] [facility] ([facility]) 5'7" Body weight 83.[address] [facility] ([facility]) [place] body weight 135 [lb_av] 135 [lb_av] [facility] T ([facility], ) Body mass index (BMI) [Ratio] 29.0 kg/m2 29.0 k g/m2 [facility] ([facility]) Body weight 185.00 [lb_av] 185.00 [lb_av] [facility] T ([facility]) Body height 67 [in_i] 67 [in_i] [facility] ([facility], ) 5'7" [place] body weight 130 [lb_av] 130 [lb_av] [facility] T ([facility]) Oxygen saturation in Arterial blood by Pulse oximetry 97 % 97 % [facility] ([facility]) Body temperature 96.7 [degF] 96.7 [degF] [facility] ([facility]) Respiratory rate 18 /min 18 /min [facility] ( [facility]) Heart rate 78 /min 78 /min [facility] ([facility]) Body mass index (BMI) [Ratio] 30.2 kg/m2 30.2 k g/m2 [facility] ([facility]) Body weight 189.50 [lb_av] 189.50 [lb_av] [facility] ([facility]) Body height 66.4 [in_i] 66.4 [in_i] [facility] ([facility]) 5'6.40" Diastolic blood pressure 68 mm[Hg] 68 mm[Hg] [facility] ([facility]) Systolic blood pressure 118 mm[Hg] 118 mm[Hg] M [facility] ([facility]) [place] body weight 130 [lb_av] 130 [lb_av] [facility] T ([facility]) Oxygen saturation in Arterial blood by Pulse oximetry 99 % 99 % [facility] ([facility]) Body temperature 98.7 [degF] 98.7 [degF] [facility] ([facility]) Respiratory rate 16 /min 16 /min [facility] ( [facility]) Heart rate 75 /min 75 /min [facility] ([facility]) Body mass index (BMI) [Ratio] 30.2 kg/m2 30.2 k g/m2 [facility] ([facility]) Body weight 189.25 [lb_av] 189.25 [lb_av] [facility] ([facility]) Body height 66.4 [in_i] 66.4 [in_i] [facility] ([facility]) 5'6.40" Diastolic blood pressure 80 mm[Hg] 80 mm[Hg] [facility] ([facility]) Systolic blood pressure 118 mm[Hg] 118 mm[Hg] M [facility] ([facility]) Oxygen saturation in Arterial blood by Pulse oximetry 98 % 98 % [facility] ([facility]) Body temperature 98.7 [degF] 98.7 [degF] [facility] ([facility]) Respiratory rate 16 /min 16 /min [facility] ( [facility]) Heart rate 76 /min 76 /min [facility] ([facility]) Body mass index (BMI) [Ratio] 30.3 kg/m2 30.3 k g/m2 [facility] ([facility]) Body weight 190.25 [lb_av] 190.25 [lb_av] [facility] T ([facility]) Body height 66.4 [in_i] 66.4 [in_i] [facility] ([facility]) 5'6.40" Diastolic blood pressure 80 mm[Hg] 80 mm[Hg] [facility] ([facility]) Systolic blood pressure 132 mm[Hg] 132 mm[Hg] M [facility] ([facility]) Oxygen saturation in Arterial blood by Pulse oximetry 98 % 98 % [facility] ([facility]) Body temperature 98.2 [degF] 98.2 [degF] [facility] ([facility]) Respiratory rate 18 /min 18 /min [facility] ( [facility]) Heart rate 89 /min 89 /min [facility] ([facility]) Body mass index (BMI) [Ratio] 30.3 kg/m2 30.3 k g/m2 [facility] ([facility]) Body weight 190.00 [lb_av] 190.00 [lb_av] [facility] T ([facility]) Body height 66.4 [in_i] 66.4 [in_i] [facility] ([facility]) 40" Diastolic blood pressure 72 mm[Hg] 72 mm[Hg] [facility] ([facility]) Systolic blood pressure 120 mm[Hg] 120 mm[Hg] M [facility] ([facility]) Oxygen saturation in Arterial blood by Pulse oximetry 99 % 99 % [facility] ([facility]) Body temperature 99.2 [degF] 99.2 [degF] [facility] ([facility]) Respiratory rate 18 /min 18 /min [facility] ( [facility]) Heart rate 86 /min 86 /min [facility] ([facility]) Body mass index (BMI) [Ratio] 30.2 kg/m2 30.2 k g/m2 [facility] ([facility]) Body weight 189.25 [lb_av] 189.25 [lb_av] [facility] T ([facility]) Body height 66.4 [in_i] 66.4 [in_i] [facility] ([facility]) 40" Diastolic blood pressure 72 mm[Hg] 72 mm[Hg] [facility] ([facility]) Systolic blood pressure 124 mm[Hg] 124 mm[Hg] M [facility] ([facility]) Oxygen saturation in Arterial blood by Pulse oximetry 97 % 97 % [facility] ([facility]) Body temperature 99.1 [degF] 99.1 [degF] [facility] ([facility]) Respiratory rate 18 /min 18 /min [facility] ( [facility]) Heart rate 87 /min 87 /min [facility] ([facility]) Body mass index (BMI) [Ratio] 31.8 kg/m2 31.8 k g/m2 [facility] ([facility]) Body weight 199.25 [lb_av] 199.25 [lb_av] [facility] T ([facility]) Body height 66.4 [in_i] 66.4 [in_i] [facility] ([facility]) 56.40" Diastolic blood pressure 72 mm[Hg] 72 mm[Hg] [facility] ([facility]) Systolic blood pressure 124 mm[Hg] 124 mm[Hg] Ricky ANTONIO ([facility])
[2020-09-25] MEDS ORDERED: CYCLOBENZAPRINE 10MG TABLET PO ONE (12:45)
[2020-09-25] MEDS ORDERED: ACETAMINOPHEN 500 MG TAB PO ONE (12:45)
--- NOTE | 2020-09-25 13:07 | REP ---
INDICATION: L groin pain. COMPARISON: 09/22/2016. TECHNIQUE: AP view of the pelvis performed, AP and frogleg views left hip. FINDINGS: There is no evidence of acute fracture, dislocation or intrinsic bone disease. The hip joints appear unremarkable. IMPRESSION: No evidence of acute fracture or dislocation. <Electronically signed by Varghese Martin > 09/25/20 [id number]
[2020-09-25 13:15] LABS: BASO % 0.6 % (0.0-1.0); EOS # 0.1 10^3/uL (0.0-0.5); HEMATOCRIT 41.6 % (36.0-47.0); LYMPH # 1.5 10^3/uL (1.5-5.0); LYMPH % 21.9 % (24.0-44.0); MEAN CORPUSCULAR HEMOGLOBIN 27.5 pg (27.0-33.0); MEAN CORPUSCULAR HGB CONC 31.3 g/dl (32.0-36.5); MEAN CORPUSCULAR VOLUME 88.1 fl (80.0-96.0); MONO # 0.4 10^3/uL (0.0-0.8); MONO % 5.6 % (0.0-5.0); NEUTROPHILS # 4.6 10^3/uL (1.5-8.5); NEUTROPHILS % 69.6 % (36.0-66.0); PLATELET COUNT, AUTOMATED 254 10^3/uL (150-450); RED BLOOD COUNT 4.72 10^6/uL (4.00-5.40); WHITE BLOOD COUNT 6.7 10^3/uL (4.0-10.0)
[2020-09-25 13:15] LABS: APPEARANCE, URINE HAZY (CLEAR); BACTERIA, URINE AUTO NEGATIVE (NEGATIVE); BILIRUBIN, URINE AUTO NEGATIVE (NEGATIVE); BLOOD, URINE BLOOD 1+ (NEGATIVE); COLOR, URINE YELLOW (YELLOW); GLUCOSE, URINE (UA) AUTO NEGATIVE (NEGATIVE); KETONE, URINE AUTO NEGATIVE (NEGATIVE); LEUKOCYTE ESTERASE, URINE AUTO NEGATIVE (NEGATIVE); NITRITE, URINE AUTO NEGATIVE (NEGATIVE); PROTEIN, URINE AUTO NEGATIVE (NEGATIVE); RBC, URINE AUTO 1 /HPF (0-3); SPECIFIC GRAVITY URINE AUTO 1.018 (1.002-1.035); SQUAMOUS EPITHELIAL CELL UR AU 6 /HPF (0-6); UROBILINOGEN, URINE AUTO 0.2 mg/dL (0.0-2.0); WBC, URINE AUTO 3 /HPF (0-3)
[2020-09-25 13:36] LABS: CALCIUM LEVEL 9.1 MG/DL (8.5-10.1); CREATININE FOR GFR 1.16 MG/DL (0.55-1.30); GLOMERULAR FILTRATION RATE 55.4 (>60); POTASSIUM SERUM 4.1 MEQ/L (3.5-5.1)
--- NOTE | 2020-09-25 13:50 | REP ---
INDICATION: L groin pain. COMPARISON: None. TECHNIQUE: Transabdominal scanning performed. FINDINGS: Uterine dimensions are 8.3 x 4.1 x 5.1 cm. Endometrial echo is 10 mm in AP dimension and centrally placed. The bladder is empty . The right ovary has dimensions of 2.4 x 1.6 x 2.0 cm. It's Doppler flow is normal with a resistive index of 0.68. The left ovary dimensions are 2.5 x 1.9 x 2.1 cm. It's Doppler flow was normal with resistive index of 0.43. There is no adnexal mass identified. No free fluid is seen in the cul-de-sac. IMPRESSION: Negative pelvic ultrasound. <Electronically signed by Varghese Martin > 09/25/20 [id number]
[2020-09-25] MEDS ORDERED: BACL10TA2 PO (14:08)
[2020-09-25 14:24] VITALS: BP 141/69
== END 2020-09-25 14:25 | disposition home or self-care (01) ==
LOC: M ED 11:49
DX: R10.30 Lower abdominal pain, unspecified (principal); M62.838 Other muscle spasm; F41.9 Anxiety disorder, unspecified; Z79.899 Other long term (current) drug therapy; Z79.3 Long term (current) use of hormonal contraceptives; Z88.0 Allergy status to penicillin; Z88.8 Allergy status to other drugs, medicaments and biological substances